=== PATIENT | female | born 1995 | race Caucasian/White ===

== ENCOUNTER 2017-07-28 18:34 | Emergency (ER) | payer OTHER ==
[~2017-07-28] VITALS: Ht 167.6 cm; Wt 97.1 kg
[~2017-07-28 18:34] MED LIST: AMOXICILLIN500 MG PO; LIDEX0.05 %/15 TOP; MEDROL4 M2 PO; PEPCID20 M1 PO
[2017-07-28 19:02] LABS: ABSOLUTE BASOPHIL COUNT 0 /CUMM (0.0-0.2); ABSOLUTE EOSINOPHIL COUNT 0.1 /CUMM (0.0-0.7); ABSOLUTE GRANULOCYTE CT 7.7 /CUMM (1.4-6.5); ABSOLUTE LYMPH COUNT 1.5 /CUMM (1.2-3.4); ABSOLUTE MONOCYTE COUNT 0.7 /CUMM (0.10-0.60); BASOPHIL % 0.5 % (0.0-2.0); EOSINOPHIL % 0.6 % (0-5); GRANULOCYTE % 76.7 % (42.2-75.2); HEMATOCRIT 35.8 % (37-47); MEAN CORPUSCULAR HGB 30.1 PG (27.0-31.0); MEAN CORPUSCULAR HGB CONC 33.6 G/DL (33.0-37.0); MEAN CORPUSCULAR VOLUME 89.6 FL (81.0-99.0); MEAN PLATELET VOLUME 9.4 FL (7.4-10.4); PLATELET COUNT 193 /CUMM (130-400); RBC DISTRIBUTION WIDTH 13.6 % (11.5-14.5); WHITE BLOOD CELL COUNT 10.1 /CUMM (4.8-10.8)
--- NOTE | 2017-07-28 20:18 | ULTRASOUND REPORT ---
EXAMINATION: ULTRASOUND PELVIC, COMPLETE CLINICAL INFORMATION: No intrauterine seen on an off-site study today. Positive quantitative test COMPARISON: None. TECHNIQUE: Transabdominal grayscale ultrasound study of pelvis. Spectral Doppler and color Doppler exam was utilized. LMP: 06/13/2017. Gestational age 6 weeks 3 days. CJ 03/20/2018. FINDINGS: UTERUS: There is a single intrauterine gestation in vertex presentation in transverse lie. There is motion. heart rate is 139 bpm. biometrics: 1. Biparietal diameter. 4.74 cm. 20 weeks 3 days. 2. OFD. 6.05 cm. 20 weeks 4 days. 3. Head circumference. 18.18 cm. 20 weeks 5 days. 4. Abdominal circumference. 15.35 cm. 20 weeks 4 days. 5. Femur length. 3.49 cm. 29 weeks 1 day. Estimated gestational age by this ultrasound exam is 20 weeks 5 days. CJ 12/10/2017. Estimated weight 373 g. +/- 54 g. ADNEXA: Ovaries not visualized. CUL-DE-SAC: No fluid. IMPRESSION: Single intrauterine gestation. Gestational age is 20 weeks 5 days. CJ 12/10/2017.
[2017-07-28 20:20] VITALS: BP 106/55
--- NOTE | 2017-07-28 20:22 | ED GENERAL ADULT ---
History of Present Illness General Chief Complaint: Female Urogenital Problems Stated Complaint: PT WAS SIB DR POSSIBLE UTOPIC Source: patient Exam Limitations: no limitations Vital Signs & Intake/Output Vital Signs & Intake/Output ED Intake and Output 07/29 0000 07/28 1200 Intake Total 0 Output Total Balance 0 Intake, Oral 0 Patient 214 lb Weight Weight Reported by Patient Measurement Method Allergies Coded Allergies: NO KNOWN ALLERGIES (01/25/17) Reconcile Medications Amoxicillin 500 MG CAPSULE 1 TAB PO TID ABRASION Famotidine (Pepcid) 20 MG TABLET 1 TAB PO BID ALLERGIC REACTION Fluocinonide (Lidex) 15 GM CREAM..G. 1 IN TOP BID POISON JUAN PABLO APPLY TO RASH TWICE A DAY Methylprednisolone. (Medrol) 4 MG TAB.DS.PK 1 DP PO AD INFLAMMATION 6 on day 1 then reduce by one tablet daily until gone Triage Note: [facility] AND WAS TOLD NOT FETUS NOTED. PT HAD A HCG QUANT DONE AND IT READ 17,591. PT WAS SENT HERE TO R/O ECTOPIC Triage Nurses Notes Reviewed? yes Onset: Abrupt Duration: week(s): Timing: single episode today Injury Environment: home Severity: mild, moderate LMP (ages 10-50): unknown : Yes Patient currently breastfeeds: No HPI: 22-year-old female currently 20 weeks presents for evaluation of possible ectopic . Patient states that she had taken a at home that was positive she went to a [facility] where she had a blood test that was positive. They attempted a bedside ultrasound and was not able to locate a IUP. She was sent in to rule out ectopic. Patient is clinically fine she has no symptoms. She has no abdominal pain no vaginal bleeding. (Leonid Giraldo) Past History Travel History Traveled to [place] past 21 day No Medical History Any Pertinent Medical History? see below for history Neurological: NONE EENT: NONE Cardiovascular: NONE Respiratory: NONE Gastrointestinal: NONE Hepatic: NONE Renal: NONE Musculoskeletal: NONE Psychiatric: NONE Endocrine: NONE Surgical History Surgical History: non-contributory Psychosocial History What is your primary language Telugu Tobacco Use: Never used ETOH Use: denies use Illicit Drug Use: denies illicit drug use Family History Hx Contributory? No (Leonid Giraldo) Review of Systems Review of Systems Constitutional: Reports: no symptoms. EENTM: Reports: no symptoms. Respiratory: Reports: no symptoms. Cardiovascular: Reports: no symptoms. GI: Reports: no symptoms. Genitourinary: Reports: no symptoms. Musculoskeletal: Reports: no symptoms. Skin: Reports: no symptoms. Neurological/Psychological: Reports: no symptoms. Hematologic/Endocrine: Reports: no symptoms. Immunologic/Allergic: Reports: no symptoms. All Other Systems: Reviewed and Negative (Leonid Giraldo) Physical Exam Physical Exam General Appearance: well developed/nourished, no apparent distress, alert, awake Head: atraumatic, normal appearance Eyes: Bilateral: normal appearance, PERRL, EOMI. Ears, Nose, Throat: hearing grossly normal Neck: normal inspection, supple, full range of motion Respiratory: normal breath sounds, chest non-tender, no respiratory distress, lungs clear Cardiovascular: regular rate/rhythm, normal peripheral pulses Peripheral Pulses: 2+ radial (R), 2+ radial (L) Gastrointestinal: normal bowel sounds, soft, non-tender, no organomegaly Back: normal inspection, normal range of motion, no vertebral tenderness Extremities: normal inspection, normal range of motion, no edema Neurologic/Psych: no motor/sensory deficits, awake, alert, oriented x 3, normal gait Skin: intact, normal color, warm/dry Lymphatic: no anterior cervical jennifer Core Measures ACS in differential dx? No CVA/TIA Diagnosis: No Sepsis Present: No Sepsis Focused Exam Completed? No (Leonid Giraldo) Progress Differential Diagnoses I considered the following diagnoses in my evaluation of the patient: [ Intrauterine , ectopic , molar ] Plan of Care: Orders Procedure Date/time Status URINALYSIS 07/28 1836 Complete HUMAN BETA HCG TITRE 07/28 1836 Complete COMPREHENSIVE METABOLIC PANEL 07/28 1836 Complete CBC WITHOUT DIFFERENTIAL 07/28 1836 Complete Laboratory Tests 07/28/170: Urinalysis MOD H, Urine Color YEL, Urine Clarity CLDY H, Urine pH 7.0, Ur Specific [place] 1.025, Urine Protein NEG, Urine Ketones NEG, Urine Nitrite NEG, Urine Bilirubin NEG, Urine Urobilinogen 0.2, Ur Leukocyte Esterase TRACE H, Ur Microscopic SEDIMENT EXAMINED, Urine RBC RARE, Urine WBC 3-5 H, Ur Epithelial Cells MOD H, Urine Bacteria FEW H, Urine Mucus FEW, Urine Hemoglobin NEG, Urine Glucose NEG 07/28/17 1849: Anion Gap 9, Estimated GFR > 60, BUN/Creatinine Ratio 13.3, Glucose 79, Calcium 9.1, Total Bilirubin 0.4, AST 11 L, ALT 13, Alkaline Phosphatase 60, Total Protein 6.7, Albumin 3.7, Globulin 3.0, Albumin/Globulin Ratio 1.2, Beta HCG, Quant 79918.0, CBC w Diff NO MAN DIFF REQ, RBC 4.00 L, MCV 89.6, MCH 30.1, MCHC 33.6, RDW 13.6, MPV 9.4, Gran % 76.7 H, Lymphocytes % 14.9 L, Monocytes % 7.3, Eosinophils % 0.6, Basophils % 0.5, Absolute Granulocytes 7.7 H, Absolute Lymphocytes 1.5, Absolute Monocytes 0.7 H, Absolute Eosinophils 0.1, Absolute Basophils 0 Patient seen and evaluated. She is here to confirm IUP. Feels fine and has no symptoms. Blood work is within normal limits. Ultrasound confirms an IUP with a approximately 20 week gestation. Patient was instructed to start vitamins follow-up with AUDIO/VIDEO ENGINEER discussed return precautions case discussed with Dr. HENDRIX and he agrees. Diagnostic Imaging: Viewed by Me: Ultrasound. Discussed w/RAD: Ultrasound. Radiology Impression: PATIENT: HERMINIA BONE PRESENT AGE: 22 PATIENT ACCOUNT NO: [id number] : 97 LOCATION: [facility] [place] ORDERING PHYSICIAN: Leonid ESPINO SERVICE DATE: 07/28/17 EXAM TYPE: US - US TRANSVAG EXAMINATION: ULTRASOUND PELVIC, COMPLETE CLINICAL INFORMATION: No intrauterine seen on an off-site study today. Positive quantitative test COMPARISON: None. TECHNIQUE: Transabdominal grayscale ultrasound study of pelvis. Spectral Doppler and color Doppler exam was utilized. LMP: 06/13/2017. Gestational age 6 weeks 3 days. CJ 03/20/2018. FINDINGS: UTERUS: There is a single intrauterine gestation in vertex presentation in transverse lie. There is motion. heart rate is 139 bpm. biometrics: 1. Biparietal diameter. 4.74 cm. 20 weeks 3 days. 2. OFD. 6.05 cm. 20 weeks 4 days. 3. Head circumference. 18.18 cm. 20 weeks 5 days. 4. Abdominal circumference. 15.35 cm. 20 weeks 4 days. 5. Femur length. 3.49 cm. 29 weeks 1 day. Estimated gestational age by this ultrasound exam is 20 weeks 5 days. CJ 12/10/2017. Estimated weight 373 g. +/- 54 g. ADNEXA: Ovaries not visualized. CUL-DE-SAC: No fluid. IMPRESSION: Single intrauterine gestation. Gestational age is 20 weeks 5 days. CJ 12/10/2017. DICTATED BY: Jemal Colvin MD DATE/TIME DICTATED:07/28/172007 FOOD AND BEVERAGE INTERN:CLEMENTE DATE/TIME TRANSCRIBED:07/28/172007 CONFIDENTIAL, DO NOT COPY WITHOUT APPROPRIATE AUTHORIZATION. <Electronically signed in Other Vendor System> SIGNED BY: Jemal Colvin MD 07/28/172017 Initial ED EKG: none (Leonid Giraldo) Departure Departure Disposition: HOME OR SELF CARE Condition: Stable Clinical Impression Primary Impression: Intrauterine Referrals: Guy HENAO,Binh Acosta (PCP/Family) Additional Instructions: Follow-up with your AUDIO/VIDEO ENGINEER doctor as soon as possible. Monitor symptoms return with any concerns. Start taking vitamins. Departure Forms: Customer Survey General Discharge Information (Leonid Giraldo) PA/SHRINKER Co-Sign Statement Statement: ED Attending supervision documentation- X I saw and evaluated the patient. I have also reviewed all the pertinent lab results and diagnostic results. I agree with the findings and the plan of care as documented in the PA's/SHRINKER's documentation. [] I have reviewed the ED Record and agree with the PA's/SHRINKER's documentation. [] Additions or exceptions (if any) to the PAs/SHRINKER's note and plan are summarized below: [] ([place] HENAO,Juancarlos) Critical Care Note Critical Care Note Critical Care Time: non-applicable (Leonid Giraldo)
== END 2017-07-28 21:25 ==
LOC: ERH 18:34
PROVIDERS: Physician Assistant Medical
DX: Z34.92 Encounter for supervision of normal pregnancy, unspecified, second trimester (principal); Z3A.20 20 weeks gestation of pregnancy
CPT/HCPCS: 76817; 81001

== ENCOUNTER 2017-12-08 11:43 | Inpatient (IN) | payer OTHER ==
[~2017-12-08] VITALS: Ht 170.2 cm; Wt 108.9 kg
[2017-12-08] MEDS ORDERED: PRENATAL ONE D1 EACH PO (12:42)
--- NOTE | 2017-12-08 12:56 | PN- OBGYN ---
Surgical Brief Attending Note Brief Attending Note: Patient is a 22 year old Para 0 at term in early labor. GBBS negative normotensive and Catagory 1 tracing To be admitted now. Discussed Nitrous oxide for labor analgesia at present and epidural if not effective for pain relief. Full H and P to follow. Discussed care with Nursing team and patient and family.
[2017-12-08 13:09] LABS: ABSOLUTE BASOPHIL COUNT 0 /CUMM (0.0-0.2); ABSOLUTE EOSINOPHIL COUNT 0 /CUMM (0.0-0.7); ABSOLUTE GRANULOCYTE CT 12.1 /CUMM (1.4-6.5); ABSOLUTE LYMPH COUNT 1.2 /CUMM (1.2-3.4); ABSOLUTE MONOCYTE COUNT 0.9 /CUMM (0.10-0.60); BASOPHIL % 0.2 % (0.0-2.0); EOSINOPHIL % 0.3 % (0-5); GRANULOCYTE % 84.9 % (42.2-75.2); MEAN CORPUSCULAR HGB 29.5 PG (27.0-31.0); MEAN CORPUSCULAR HGB CONC 33.6 G/DL (33.0-37.0); MEAN CORPUSCULAR VOLUME 87.8 FL (81.0-99.0); MEAN PLATELET VOLUME 9.3 FL (7.4-10.4); PLATELET COUNT 176 /CUMM (130-400); RBC DISTRIBUTION WIDTH 14.1 % (11.5-14.5); RED BLOOD CELL CT 4.21 /CUMM (4.20-5.40); WHITE BLOOD CELL COUNT 14.3 /CUMM (4.8-10.8)
--- NOTE | 2017-12-08 15:04 | History & Physical ---
General Information and HPI MD Statement: I have seen and personally examined HERMINIA BONE and documented this H&P. The patient is a 22 year old female at 39 weeks and 5 days gestation who presented with a chief complaint of contractions. Source of Information: patient, old records Exam Limitations: no limitations History of Present Illness: Patient is a 22 year old Para 0 at term with complaints of contractions since this am. Presented to my office at 0930 and was 4-5 cm. She was informed to come to CBC for admission. Good movement. Denies vaginal bleeding. 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 Home Who Do You Live With? parent Primary Language: Gibraltarian Smoking Status: Never Smoked ETOH Use: denies use Illicit Drug Use: denies illicit drug use Living Will? unknown Power of Compliance Professional/HCP? unknown Employment History Employment Unemployed Review of Systems Review of Systems Constitutional: Denies: no symptoms. EENTM: Denies: no symptoms. Cardiovascular: Denies: no symptoms. Respiratory: Denies: no symptoms. GI: Denies: no symptoms. Genitourinary: Denies: no symptoms. Musculoskeletal: Denies: no symptoms. Skin: Denies: no symptoms. Neurological/Psychological: Denies: no symptoms. Hematologic/Endocrine: Denies: no symptoms. Immunologic/Allergic: Denies: no symptoms. All Other Systems: Reviewed and Negative Date of LMP: 06/06/17 Post Menopausal: No Mammogram Testing Status: Test never done Pap Smear Testing Status: Test never done (she is under 21) Exam & Diagnostic Data Last 24 Hrs of Vital Signs/I&O Intake & Output 12/08 1600 12/08 0800 12/08 0000 Intake Total Output Total Balance Patient 108.862 kg Weight Obstetric Exam Wgt Gained During : 28 Pelvimetry: Gynecoid Dilation (cm): 5 Effacement (%): 100 Station: -2 Membranes: intact Fluid: Intact Fundal Height (cm): 39 Multiple Gestation? No Contractions: Q2-3 minutes #1 - FHR Baseline: 140 Category: 1 Estimated Weight: 3500 grams Presentation: Cephalic Patient for Induction? No Avina Score Avina Score Response Value Cervix Position: posterior 0 Cervix Consistency: soft 2 Cervix Effacement: >80% 3 Cervix Dilation: >5 cm 3 Cervix Station: -2 1 Total 9 Physical Exam General Appearance Alert, Oriented X3, Cooperative, Moderate Distress Skin No Rashes, No Breakdown HEENT Atraumatic, PERRLA Neck Supple Lymphatic Axillary nl Cardiovascular Regular Rate, Normal S1, Normal S2 Lungs Clear to Auscultation, Normal Air Movement Abdomen Soft Neurological Normal Gait, Normal Speech, Strength at 5/5 X4 Ext, Normal Tone, Sensation Intact, Cranial Nerves 3-12 NL, Reflexes 2+ Extremities No Edema Vascular Normal Pulses, Pulses Symmetrical Breasts Breast appear nl Reproductive (FEMALE) Normal female genitalia Pelvic (FEMALE) Appearance Normal Labs Blood Type & Rh: A positive Antibody Screen: negative Hct/Hgb & Platelets #1: 35.5/196 Hct/Hgb & Platelets #2: 37.8/204 Rubella: immune VDRL #1: negative VDRL #2: negative HbsAg: negative HIV #1: negative HIV #2 negative 1 Hr P 3 Hr PG: GTT negative Group B Strep: negative Initial Ultrasound: Dating us wnl Anatomy Ultrasound: Level 2 wnl and anterior placenta Ultrasound for EFW: 3096 grams at [id number] Genetic Testing: NIPT negative and AFP negative Last 24 Hrs of Labs/[place]: Laboratory Tests 12/08/17 1245: CBC w Diff MAN DIFF ORDERED, RBC 4.21, MCV 87.8, MCH 29.5, MCHC 33.6, RDW 14.1, MPV 9.3, Gran % 84.9 H, Lymphocytes % 8.1 L, Monocytes % 6.5, Eosinophils % 0.3, Basophils % 0.2, Absolute Granulocytes 12.1 H, Absolute Lymphocytes 1.2, Absolute Monocytes 0.9 H, Absolute Eosinophils 0, Absolute Basophils 0, Platelet Estimate VERIFIED BY SMEAR, Normocytic RBCs VERIFIED, Normochromic RBCs VERIFIED 12/08/17 1240: Urinalysis LIGHT H, Urine Color YEL, Urine Clarity HAZY H, Urine pH 6.0, Ur Specific [place] 1.025, Urine Protein TRACE H, Urine Ketones NEG, Urine Nitrite NEG, Urine Bilirubin NEG, Urine Urobilinogen 0.2, Ur Leukocyte Esterase LARGE H , Ur Microscopic SEDIMENT EXAMINED, Urine RBC RARE, Urine WBC 25-50 H, Ur Epithelial Cells MANY H, Urine Bacteria MANY H, Urine Hemoglobin LARGE H, Urine Glucose NEG Assessment/Plan Assessment/Plan: 22 year old para o with complicated by obesity who is now in early active labor. She is GBBS negative and with Catagory 1 tracing. Admit for labor Epidural requested GBBS negative so unless pyrexia noted no need for antibiotics Shoulder dystocia risks being obesity however last US from 36w6d is 3096 grams. EFW 3500 grams and negative GTT. Watch labor curve Anticipate vaginal . If csection is performed I will place IUD at time of csection for contraception. VNA services given first . As Ranked By This Provider Problem List: 1. 2. Obesity affecting in third trimester, antepartum Core Measures Venous Thromboembolism VTE Risk Factors / No Mechanical VTE Prophylaxis d/t N/A MechProphylax Ordered No VTE Pharm Prophylaxis d/t NA PharmProphylax ordered
--- NOTE | 2017-12-08 21:09 | PN- OBGYN ---
Surgical Brief Attending Note Brief Attending Note: Patient seen and examined /-2 Catagory [address] Protracted labor course Intact forewaters. I didnt AROM as not well engaged. More likely slower course from epidural. Discussed with patient that head hasnt descended yet but was OP on previous US. I will reassess in 2 hours.
--- NOTE | 2017-12-08 22:48 | PN- OBGYN ---
Surgical Brief Attending Note Brief Attending Note: Informed of T100.2 Catagory 1 tracing but baseline did increase to 160's 8-9/100/-2 AROM light meconium IUPC placed to assess contraction pattern. Pyrexia noted. If additional temp over 100.4 than antibiotics needed If pattern is hypotonic on contraction pattern than oxytocin Reassess in two hours. Patient and mother informed of treatment plan
--- NOTE | 2017-12-09 01:17 | PN- OBGYN ---
Surgical Brief Attending Note Brief Attending Note: C/o pressure 8/100/-2. Catagory [address] MVU of 180-200. Now 4 hours of adequate contractions and no cervical change. I discussed with patient and family that her labor curve has been protracted today. In my opinion her pelvis is adequate and the contractions have been as well. Giving her additional time would only increase her risks of chorioamnionitis and uterine atony. I contacted Pediatrics and they are coming in. Anesthesia team is aware as well. Consent for procedure obtained. Risks of pain, bleeding, infection, damage to local organs (bowel, bladder, nerve), vte, future risk of placenta previa and ileus reviewed. Ample time given for questions. Hct 37 and Rh positive.
--- NOTE | 2017-12-09 03:21 | Operative Report ---
Operative/Inv Procedure Report Surgery Date: 12/09/17 Name of Procedure: Low transverse Csection Pre-Operative Diagnosis: Arrest of dilation Post-Operative Diagnosis: same Estimated Blood Loss: 600 Surgeon/Director Of Marketing Analytics: Asad HENAO,Edward Quinteros MD, X Anesthesia: Epidural Monitors: Per anesthesiology IV Fluids: 1500 Urine Output: 300 Drains: NA Specimens: Placenta Complications: None Condition: Stable to RR and stable to RR Operative Indication: 22 year old Para 0 at term with arrest of dilation at 8 cm despite 4 hours of adequate contractions and IUPC monitoring. Preop diagnosis was that of malrotation. Consent obtained with risks and benefits explained. Ample time given for questions and partner present along with her mother. Operative/Procedure Note Note: Patient taken to OR and prepped in usual sterile fashion Time out done prior to procedure. As she was in labor and with PROM than a vaginal prep was done. After abdomen prepped a phannensteil incision was made with a scalpel and carried down to underlying layer of fascia. The fascia was opened and extended using bovie cautery. The fascia was bluntly and sharply dissected from the underlying muscle. The muscle was entered bluntly and then the peritoneum identified and entered sharply with metzenbaum scissors. The peritoneal cavity was then streched and bladder blade introduced. The vesicouterine peritoneum was sharply dissected from the uterus and displaced caudally. The bladder blade was then reintroduced. A hysterotomy incision was made with a scalpel and extended in manual fashion. The head was lifted to the level of the incision and nuchal x 1 reduced. given to peds in good condition. The placenta was removed using the crede maneuver. The uterus was removed from the abdomen and cleared of clots and debris. Oxytocin was administered per protocol from Anesthesiology. First layer closure done with O vicryl and a second imbricating layer with O vicryl as well. Uterus replaced into the abdomen and the abdomen was irrigated. Peritoneum closed with 3-0 vicryl and the rectus reapproximated with 3-0 vicryl. Fascia closed then with 0 vicryl and the subcutaneous tissue reapproximated with 3-0 plain. The skin was closed with 4-0 monocryl on baldomero needle. Instrument and lap count correct x 2. Patient tolerated procedure well and taken to RR in stable condition. Findings: No adhesions noted liveborn male LOT rotation noted Nuchal cord x 1 reduced Apgars 9 and 9 Normal uterus tubes and ovaries Meconium stained fluid. Discharge Disposition: RR Additional Comments: Peds present and apgars 9 and 9
[2017-12-09 04:48] VITALS: BP 129/65
--- NOTE | 2017-12-09 13:59 | PN- OBGYN ---
Surgical Brief Attending Note Brief Attending Note: Seen and evaluated POD#0 Afebrile and vitals stable Denies nausea Tolerating diet Breast feeding Pain controlled on current medication VTE prophylaxis with alps Lovenox to start tomorrow am
[2017-12-09 21:37] LABS: ABSOLUTE BASOPHIL COUNT 0 /CUMM (0.0-0.2); ABSOLUTE EOSINOPHIL COUNT 0 /CUMM (0.0-0.7); ABSOLUTE GRANULOCYTE CT 15.5 /CUMM (1.4-6.5); ABSOLUTE LYMPH COUNT 0.8 /CUMM (1.2-3.4); ABSOLUTE MONOCYTE COUNT 1.1 /CUMM (0.10-0.60); BASOPHIL % 0 % (0.0-2.0); EOSINOPHIL % 0.1 % (0-5); MEAN CORPUSCULAR HGB 29.8 PG (27.0-31.0); MEAN CORPUSCULAR HGB CONC 33.1 G/DL (33.0-37.0); MEAN CORPUSCULAR VOLUME 89.9 FL (81.0-99.0); MEAN PLATELET VOLUME 8.7 FL (7.4-10.4); PLATELET COUNT 134 /CUMM (130-400); RBC DISTRIBUTION WIDTH 14.2 % (11.5-14.5); RED BLOOD CELL CT 3.23 /CUMM (4.20-5.40); WHITE BLOOD CELL COUNT 17.3 /CUMM (4.8-10.8)
[2017-12-09 21:48] LABS: HEMATOCRIT 29.1 % (37-47)
[2017-12-09 22:11] LABS: GRANULOCYTE % 89.2 % (42.2-75.2)
[2017-12-10 09:54] LABS: ABSOLUTE BASOPHIL COUNT 0 /CUMM (0.0-0.2); ABSOLUTE EOSINOPHIL COUNT 0 /CUMM (0.0-0.7); ABSOLUTE GRANULOCYTE CT 15.4 /CUMM (1.4-6.5); ABSOLUTE LYMPH COUNT 1.1 /CUMM (1.2-3.4); ABSOLUTE MONOCYTE COUNT 1.3 /CUMM (0.10-0.60); BASOPHIL % 0 % (0.0-2.0); EOSINOPHIL % 0.2 % (0-5); GRANULOCYTE % 86.4 % (42.2-75.2); HEMATOCRIT 27.8 % (37-47); MEAN CORPUSCULAR HGB 29.6 PG (27.0-31.0); MEAN CORPUSCULAR HGB CONC 33.4 G/DL (33.0-37.0); MEAN CORPUSCULAR VOLUME 88.7 FL (81.0-99.0); MEAN PLATELET VOLUME 9.4 FL (7.4-10.4); PLATELET COUNT 135 /CUMM (130-400); RBC DISTRIBUTION WIDTH 14.4 % (11.5-14.5); RED BLOOD CELL CT 3.13 /CUMM (4.20-5.40); WHITE BLOOD CELL COUNT 17.8 /CUMM (4.8-10.8)
[2017-12-10] MEDS ORDERED: IBUPROFEN600 M1 PO (10:39)
--- NOTE | 2017-12-10 10:50 | PN- Post Delivery/GYN ---
Subjective Subjective: Denies nausea Passed flatus and bowel movement too Review of Systems Constitutional: Denies: no symptoms. EENTM: Denies: no symptoms. Cardiovascular: Denies: no symptoms. Respiratory: Denies: no symptoms. Gastrointestinal: Denies: no symptoms. Genitourinary: Denies: no symptoms. Musculoskeletal: Denies: no symptoms. Skin: Denies: no symptoms. Neurological/Psychological: Denies: no symptoms. Hematologic/Endocrine: Denies: no symptoms. Immunologic/Allergic: Denies: no symptoms. All Other Systems: Reviewed and Negative Objective Last 24 Hrs of Vital Signs/I&O Vital Signs Date Time Temp Pulse Resp B/P B/P Pulse O2 O2 Flow FiO2 Mean Ox Delivery Rate 12/10 0345 96.9 12/10 011 99.9 12/09 1929 101.0 Physical Exam: Afebrile at present Vitals per paper record Physical Exam General Appearance Alert, Oriented X3, Cooperative, No Acute Distress Skin No Rashes HEENT Atraumatic Cardiovascular Regular Rate, Normal S1, Normal S2 Lungs Clear to Auscultation, Normal Air Movement Abdomen Normal Bowel Sounds, Wound intact Neurological Normal Gait, Normal Speech, Strength at 5/5 X4 Ext, Normal Tone, Sensation Intact Extremities No Edema Vascular Pulses Symmetrical Breasts Breast appear nl Current Medications: Current Medications Sig/Ni Start time Last Medication Dose Route Stop Time Status Admin Acetaminophen 650 MG Q4P PRN 12/10 0115 AC 12/10 PO 0758 Acetaminophen 0 .STK-MED ONE 12/10 0112 DC PO Acetaminophen 0 .STK-MED ONE 12/09 1938 DC IV Acetaminophen 0 .STK-MED ONE 12/09 1112 DC IV Acetaminophen 1,000 MG Q6H 12/09 0500 DC 12/09 N/A 1 UNIT IV 12/09 1714 1930 Ascorbic Acid 500 MG BID 12/09 0900 AC 12/09 PO 2355 Diphenhydramine HCl 25 MG Q6P PRN 12/09 0430 AC IV Ibuprofen 600 MG Q6P PRN 12/09 0315 AC 12/10 PO 0758 Ketorolac 30 MG Q6P PRN 12/09 0430 DC 12/10 Tromethamine IV 12/10 0429 0234 Magnesium Hydroxide 30 ML DAILY NEEDED PRN 12/09 0315 AC PO Metoclopramide HCl 10 MG Q6P PRN 12/09 0430 AC IV Naloxone HCl 0.2 MG DAILY PRN 12/09 0430 AC IV Oxycodone HCl 5 MG Q6P PRN 12/09 1530 AC PO Oxytocin 20 UNITS Q8H 12/09 0315 DC 12/09 Lactated Ringer's 1,000 ML IV 12/09 1114 0315 Last 24 Hrs of Labs/[place]: Laboratory Tests 12/10/17 0700: CBC w Diff MAN DIFF ORDERED, RBC 3.13 L, MCV 88.7, MCH 29.6, MCHC 33.4, RDW 14.4, MPV 9.4, Gran % 86.4 H, Lymphocytes % 6.2 L, Monocytes % 7.2, Eosinophils % 0.2, Basophils % 0, Absolute Granulocytes 15.4 H, Absolute Lymphocytes 1.1 L, Absolute Monocytes 1.3 H, Absolute Eosinophils 0, Absolute Basophils 0, Platelet Estimate VERIFIED BY SMEAR, Normocytic RBCs VERIFIED, Normochromic RBCs VERIFIED 12/09/170: CBC w Diff NO MAN DIFF REQ, RBC 3.23 L, MCV 89.9, MCH 29.8, MCHC 33.1, RDW 14.2 , MPV 8.7, Gran % 89.2 H, Lymphocytes % 4.5 L, Monocytes % 6.2, Eosinophils % 0.1, Basophils % 0, Absolute Granulocytes 15.5 H, Absolute Lymphocytes 0.8 L, Absolute Monocytes 1.1 H, Absolute Eosinophils 0, Absolute Basophils 0 Assessment/Plan Assessment/Plan POD#1 s/p low transverse Csection secondary to arrest of labor at 8 cm Of note patient with one temperature spike and acute hemorrhagic anemia but currently stable and no orthostatic findings. Heme. Hct stable at 27.8 and platelets stable. More likely to have had Hct drop from combination of dilution and csection and possible uterine hematoma formation. This as the temperature was noted. Vitamin C and iron supplementation to be given. ID. Noted T max of 101. Urine culture negative and no physical findings of metritis. If additional temperature over 100.4 than to start on empiric antibiotics. VTE prophylaxis with Alps and ambulation. Breast feeding education and support provided. Tdap was given and to get influenza vaccine at follow up. Planned dc for 12/12/17 however may go home 12/11/17 if stable. Problem List: 1. delivery delivered 2. Obesity affecting in third trimester, antepartum Attending MD Review Statement Attending Statement Attending MD Statement: examined this patient, discussed with family, discussed with nursing Attending Assessment/Plan: As outlined
--- NOTE | 2017-12-11 09:41 | PN- OBGYN ---
Surgical Brief Attending Note Brief Attending Note: Seen and examined Appreciate follow up from Dr Jamil regarding Temp spike. Patient states feeling well Denies coughing Denies back pain Denies breast pain States flatus is passing T max 101.2 Afebrile at present. Lungs clear Abdomen soft and incisional tenderness Wound intact No cvat 1+ pedal edema Meds: Iron, Vitamin C, Unasyn WBC 17.3 Platelets 135 and Hct 27.8 on 12/10/17 Pod#2 s/p low transverse csection for arrest of labor. Postoperative course complicated by acute hemorrhagic anemia and now fever. ID. Most likely endometritis vs that of infected hematoma given the acute hct drop. Afebrile at present. Follow fever curve. On Unasyn day #1. As long as no fever in 24 hours than plan for dc. No other focal findings clinically and she denied engorgement. Start on probiotics to prevent antibiotic associated diarrhea. Heme. Follow up cbc today for assessment of wbc, hct and platelets. VTE prophylaxis. She is ambulating well. On alps for when she is sleeping and in bed. Diet. Tolerating regular diet Pain. She is using tylenol and motrin as needed with oxycodone for breakthrough. She received the Tdap and will get the flu shot at follow up. Plan once afebrile for dc and follow up in one week with Dr Kamara Breast feeding counseling and support given. I will review care with Dr Jamil as she is covering this weekend. Patient understands treatment plan.
[2017-12-11 10:05] LABS: ABSOLUTE BASOPHIL COUNT 0 /CUMM (0.0-0.2); ABSOLUTE EOSINOPHIL COUNT 0.1 /CUMM (0.0-0.7); ABSOLUTE GRANULOCYTE CT 12.2 /CUMM (1.4-6.5); ABSOLUTE LYMPH COUNT 1.2 /CUMM (1.2-3.4); BASOPHIL % 0 % (0.0-2.0); EOSINOPHIL % 0.9 % (0-5); GRANULOCYTE % 84.3 % (42.2-75.2); HEMATOCRIT 28.6 % (37-47); MEAN CORPUSCULAR HGB 29.6 PG (27.0-31.0); MEAN CORPUSCULAR VOLUME 89.5 FL (81.0-99.0); MEAN PLATELET VOLUME 8.8 FL (7.4-10.4); PLATELET COUNT 155 /CUMM (130-400); RBC DISTRIBUTION WIDTH 14.3 % (11.5-14.5); WHITE BLOOD CELL COUNT 14.4 /CUMM (4.8-10.8)
--- NOTE | 2017-12-11 17:09 | PN- Post Delivery/GYN ---
Subjective Subjective: No complaints Objective Last 24 Hrs of Vital Signs/I&O Temperature 102 Physical Exam: Resident white female embedded HEENT anicteric Abdomen soft nontender Fundus firm nontender 2 cm below umbilicus From the Pfannenstiel skin incision 22 cm below the umbilicus the patient has a well defined pink area consistent with cellulitis the incision is clean dry and intact Extremities +3 edema negative Homans Assessment/Plan Assessment/Plan Assessment status post section with a temperature skin infection consistent with cellulitis plan continue Unasyn patient have offered left lower temperature is temperature persists patient will have blood cultures and cooling blanket otherwise expectant management
[2017-12-12] MEDS ORDERED: FERROUS SULFAT325 M2 PO (12:03)
[2017-12-12] MEDS ORDERED: OXYCODONE HCL5 M1 PO (12:03)
--- NOTE | 2017-12-14 08:53 | Surgical Discharge Summary ---
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 Home Who Do You Live With? Family Services at Home: None What is Your Primary Language? Romanian Tobacco History: NA ETOH Use: denies use Illicit Drug Use History: na Other Addictive Behavior: na Review of Systems: Denies nausea Denies vomiting Positive flatus Hospital Course Course Attending Physician: Edward Kamara MD Primary Care Physician: Binh Tovar MD Hospital Course: Admitted for labor. She progressed to 8 cm. No cervical change was noted and she had a low transverse csection performed on the . Began to have fever on the and was started on antibiotics. Discharged afebrile on the by Dr Jamil. Cultures negative to date and wbc was trending downward with stable hematocrit. Complications: fever Allergies: Coded Allergies: NO KNOWN ALLERGIES (NONE 12/14/17) Significant Procedures: Low transverse csection Pertinent Lab Results: WBC 14 Hematocrit 28 Urine and blood cultures negative Disposition Summary Disposition Principal Diagnosis: Arrest of labor Additional Diagnosis: fever Discharge Disposition: home or self care Discharge Instructions General Discharge Information Code Status: Full Code Patient's Diet: Regular Patient's Activity: As tolerated and no heavy lifting Follow-Up Instructions/Appts: CBC for week of 12/14/17 and 12/18/[address] Kamara for wound care assessment. Medications at Discharge Discharge Medications: Continue taking these medications: Vit No.129/Iron/FA ( One Daily Tablet) 27 MG IRON-800 MCG TABLET 1 Tablet ORAL DAILY Start taking the following new medications: Ibuprofen (Ibuprofen) 600 MG TABLET 600 Milligram ORAL EVERY SIX HOURS NEEDED as needed for UTERINE CRAMPING Qty = 30 No Refills Comments: Last Taken:12/12/17 Time:0759 Ferrous Sulfate (Ferrous Sulfate) 325 MG (65 MG IRON) TABLET.DR 325 Milligram ORAL AT BEDTIME Qty = 90 No Refills Oxycodone HCl (Oxycodone HCl) 5 MG TABLET 5 Milligram ORAL EVERY SIX HOURS NEEDED as needed for PAIN SCALE 7-10 ( SEVERE) Qty = 30 No Refills Copies To: Asad HENAO,Edward Attending Review Statement Attending Statement Attending MD Statement: examined this patient Attending Assessment/Plan: As outlined
== END 2017-12-12 15:00 | DRG 765 ==
LOC: CBCO 11:43 → GNO 12:21
PROVIDERS: Obstetrics & Gynecology; Specialist
PROC: 10D00Z1 Extraction of Products of Conception, Low, Open Approach (ICD-10-PCS; principal; 2017-12-09)
DX: O62.1 Secondary uterine inertia (principal); D62 Acute posthemorrhagic anemia; O86.4 Pyrexia of unknown origin following delivery; Z3A.39 39 weeks gestation of pregnancy; Z37.0 Single live birth; O69.81X0 Labor and delivery complicated by cord around neck, without compression, not applicable or unspecified; O77.0 Labor and delivery complicated by meconium in amniotic fluid; O99.214 Obesity complicating childbirth; O90.81 Anemia of the puerperium
CPT/HCPCS: GNOP; GNOS; 36415; 81001; 87040; 87086; J0131; J1650; J1885; J2405; J7120

== ENCOUNTER 2017-12-14 07:52 | Inpatient (IN) | payer OTHER ==
[~2017-12-14] VITALS: Ht 170.2 cm; Wt 106.8 kg
[~2017-12-14 07:52] MED LIST changes: +FERROUS SULFAT325 M2 PO; +IBUPROFEN600 M1 PO; +OXYCODONE HCL5 M1 PO; +PRENATAL ONE D1 EACH PO
[2017-12-14 09:13] LABS: ABSOLUTE BASOPHIL COUNT 0 /CUMM (0.0-0.2); ABSOLUTE EOSINOPHIL COUNT 0.1 /CUMM (0.0-0.7); BASOPHIL % 0 % (0.0-2.0); EOSINOPHIL % 0.9 % (0-5); WHITE BLOOD CELL COUNT 14.3 /CUMM (4.8-10.8)
[2017-12-14 09:18] LABS: ABSOLUTE GRANULOCYTE CT 12.6 /CUMM (1.4-6.5); ABSOLUTE LYMPH COUNT 0.7 /CUMM (1.2-3.4); HEMATOCRIT 27.5 % (37-47); MEAN CORPUSCULAR HGB CONC 33.8 G/DL (33.0-37.0); MEAN CORPUSCULAR VOLUME 88.8 FL (81.0-99.0); MEAN PLATELET VOLUME 8.2 FL (7.4-10.4); RBC DISTRIBUTION WIDTH 13.5 % (11.5-14.5)
[2017-12-14 09:20] LABS: PLATELET COUNT 242 /CUMM (130-400)
[2017-12-14 09:35] LABS: GRANULOCYTE % 87.7 % (42.2-75.2)
--- NOTE | 2017-12-14 09:36 | ED GENERAL ADULT ---
History of Present Illness General Chief Complaint: General Adult Stated Complaint: FEVER S/P POSTPARDUM Source: patient Exam Limitations: no limitations Vital Signs & Intake/Output Vital Signs & Intake/Output Vital Signs Date Time Temp Pulse Resp B/P B/P Pulse O2 O2 Flow FiO2 Mean Ox Delivery Rate 12/14 1119 98.3 83 16 146/80 94 Room Air 12/14 0922 99.2 89 16 128/64 94 Room Air 12/14 0759 101.9 130 18 125/77 92 Room Air Allergies Coded Allergies: NO KNOWN ALLERGIES (NONE 12/14/17) Reconcile Medications Cephalexin 500 MG CAPSULE 1 CAP PO Q6 ANTIBIOTIC, INFECTION (Reported) Ferrous Sulfate 325 MG (65 MG IRON) TABLET.DR 325 MG PO AT BEDTIME ANEMIA Ibuprofen 600 MG TABLET 600 MG PO Q6P PRN UTERINE CRAMPING Oxycodone HCl 5 MG TABLET 5 MG PO Q6P PRN PAIN SCALE 7-10 (SEVERE) Vit No.129/Iron/FA ( One Daily Tablet) 27 MG IRON-800 MCG TABLET 1 TAB PO DAILY (Reported) Triage Note: PT HAD BABY ON THE , STARTED WITH VAGINAL DELIVERY AND THEN HAD TO HAVE A . FEELS LIKE SHE HAS STUFF IN HER LUNGS. TEMP 102.4 AT HOME - HAD TYLENOL 20 MINS AGO AND TEMP NOW 101.9 IN TRIAGE. DENIES ANY EPPS OTHER THAN WHEN COUGHING. COUGH PRODUCTIVE OF WHITE MUCUS. HR 130, RA SAT 91-92%. NOTED DIAPHORESIS ON FACE. Triage Nurses Notes Reviewed? yes Onset: Abrupt Duration: day(s): (3), constant, continues in ED, getting worse Timing: single episode today Injury Environment: HOSPITAL Severity: mild, moderate Severity Numbers: 7 No Modifying Factors: none Associated Symptoms: cough LMP (ages 10-50): S/P 4 DAYS AGO : No Patient currently breastfeeds: No HPI: 22-year-old female with no past medical history 4 days status post presents for evaluation of fever cough and shortness of breath. Patient reports she had a on 4 days ago. She did develop a postop fever and was started on Unasyn and then discharged on Keflex for possible surgical infection. Patient reports since her discharge she has developed worsening cough feels like there is fluid in her chest and has shortness of breath. She states the shortness breath is worse when she lays back. She also has lower EXTREMITY edema. No hemoptysis. She denies any chest pain back pain abdominal pain OR INCREASING vaginal discharge or bleeding. Dr. Kamara is her OB. (Leonid Giraldo) Past History Travel History Traveled to [place] past 21 day No Medical History Any Pertinent Medical History? 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 No (Leonid Giraldo) Review of Systems Review of Systems Constitutional: Reports: fever. EENTM: Reports: no symptoms. Respiratory: Reports: see HPI, cough, orthopnea, short of breath. Cardiovascular: Reports: no symptoms. GI: Reports: no symptoms. Genitourinary: Reports: no symptoms. Musculoskeletal: Reports: no symptoms. Skin: Reports: no symptoms. Neurological/Psychological: Reports: no symptoms. Hematologic/Endocrine: Reports: no symptoms. Immunologic/Allergic: Reports: no symptoms. All Other Systems: Reviewed and Negative (Leonid Giraldo) Physical Exam Physical Exam General Appearance: well developed/nourished, no apparent distress, alert, awake , obese Head: atraumatic, normal appearance Eyes: Bilateral: normal appearance, PERRL, EOMI. Ears, Nose, Throat: normal pharynx, normal ENT inspection, hearing grossly normal Neck: normal inspection, supple, full range of motion Respiratory: chest non-tender, no respiratory distress, crackles Cardiovascular: regular rate/rhythm, normal peripheral pulses Peripheral Pulses: 2+ radial (R), 2+ radial (L) Gastrointestinal: soft, non-tender, SCAR APPEARS WELL APPROXIMATED WITHOUT ERYTHEMA OR DISCHARGE NO FOCAL FLUCTUANT AREAS. uTERUS FUNDUS IS ENLARGEDAS EXPECTED FOR BEING POST BUT NONTENDER. Back: normal inspection, normal range of motion, no vertebral tenderness Extremities: normal range of motion, THERE IS NONPITTING BILATERAL LOWER EXTREMITY EDEMA Neurologic/Psych: no motor/sensory deficits, awake, alert, oriented x 3, normal gait, normal mood/affect Skin: intact, normal color, warm/dry Core Measures ACS in differential dx? No CVA/TIA Diagnosis: No Sepsis Present: No Sepsis Focused Exam Completed? No (Art ESPINO,Leonid) Progress Differential Diagnoses I considered the following diagnoses in my evaluation of the patient: [PE, pneumonia, postsurgical infection, abscess, endometritis, retained products of conception, acute bronchitis, CHF, cardiomyopathy, help syndrome,] Plan of Care: Orders Procedure Date/time Status Regular Diet 12/14 D Active CULTURE,URINE 12/14 1319 Active LOWER RESPIRATORY CULTURE 12/14 1319 Active Patient Data 12/14 1242 Active Misc Message 12/14 1210 Active ED Holding Orders 12/14 1210 Active Admit to inpatient 12/14 1210 Active Vital Signs 12/14 1210 Active Code Status 12/14 1210 Active Add-on Test (ER Only) 12/14 1120 Active EKG 12/14 1120 Active Intake & Output 12/14 0903 Active Add-on Test (ER Only) 12/14 0830 Active B-TYPE NATRIURETIC PEP (BNP) 12/14 0819 Complete BLOOD CULTURE 12/14 0804 Active URINALYSIS 12/14 0804 Complete LACTIC ACID 12/14 0804 Complete D-DIMER 12/14 0804 Complete COMPREHENSIVE METABOLIC PANEL 12/14 0804 Complete CBC WITHOUT DIFFERENTIAL 12/14 0804 Complete Laboratory Tests 12/14/17 1109: Urine Color YEL, Urine Clarity CLEAR, Urine pH 6.0, Ur Specific Friendship <= 1.005 , Urine Protein NEG, Urine Ketones TRACE H, Urine Nitrite NEG, Urine Bilirubin NEG, Urine Urobilinogen 0.2, Ur Leukocyte Esterase LARGE H, Ur Microscopic SEDIMENT EXAMINED, Urine RBC 5-10 H, Urine WBC 15-25 H, Ur Epithelial Cells FEW, Urine Bacteria FEW H, Urine Hemoglobin LARGE H, Urine Glucose NEG 12/14/17 1104: Lactic Acid Cancelled 12/14/17 0819: Anion Gap 12, Estimated GFR > 60, BUN/Creatinine Ratio 13.3, Glucose 80, Lactic Acid 0.9, Calcium 8.3 L, Total Bilirubin 0.5, AST 24, ALT 33, Alkaline Phosphatase 250 H, Zin-G-Iowxpcvctbj Pept 868 H, Total Protein 5.1 L, Albumin 2.6 L, Globulin 2.5, Albumin/Globulin Ratio 1.0 L, D-Dimer High Sensitivty 4098 H, CBC w Diff NO MAN DIFF REQ, RBC 3.10 L, MCV 88.8, MCH 30.0, MCHC 33.8, RDW 13.5, MPV 8.2, Gran % 87.7 H, Lymphocytes % 4.8 L, Monocytes % 6.6, Eosinophils % 0.9, Basophils % 0, Absolute Granulocytes 12.6 H, Absolute Lymphocytes 0.7 L, Absolute Monocytes 1.0 H, Absolute Eosinophils 0.1, Absolute Basophils 0 Microbiology 12/14 1318 URINE ROUT: Urine Culture - COLB 12/14 1318 LOWER RESP: Respiratory Culture - COLB 12/14 1318 LOWER RESP: Gram Stain - COLB 12/14 837 BLOOD: Blood Culture - RECD 12/14 818 BLOOD: Blood Culture - RECD Patient is here for evaluation of fever cough and shortness of breath 4 days status post . Initial evaluation she is tachycardic to 1:30 with an oxygen saturation 92% on room air. She does have crackles bilaterally and leg edema. She has a temp of 101.9. Labs cultures ordered. Patient will get a CTA and a CT scan of her abdomen to rule out PE. The patient's CURER ACID DRUM Dr. Kamara is aware of situation he is at the bedside to evaluate the patient he does not feel discharge since help syndrome or preeclampsia. Labs show a white count of 14. Potassium is 3.2. D-dimer is now feeling elevated waiting on CTA. CTA shows significant pulmonary edema and anasarca. No PE. She also has bilateral lower lobe pneumonia. Patient was started on Lasix. A call was placed to Dr. Laureano from cardiology waiting on recommendations she'll need an echo. Patient was started on vancomycin and Fortaz due to recent hospitalization, recent surgery recent IV antibiotics. EKG does not show any significant acute findings. BNP is elevated to 800. Patient will require admission to telemetry for serial labs, echocardiogram, serial EKGs, IV diuresis , IV antibiotics, follow-up cultures, cardiology consult, [employer]ER [employer]UM consult. Diagnostic Imaging: Viewed by Me: CT Scan. Discussed w/RAD: CT Scan. Radiology Impression: PATIENT: HERMINIA BONE PRESENT AGE: 22 PATIENT ACCOUNT NO: [id number] : 97 LOCATION: [facility] ORDERING PHYSICIAN: Leonid ESPINO SERVICE DATE: 12/14/17 EXAM TYPE: CAT - CT ABD & PELVIS W IV CONTRAST; CTA CHEST-PULMONARY EMBOLISM EXAMINATION: CT ANGIOGRAM OF THE CHEST WITH CONTRAST (CT PULMONARY ANGIOGRAM FOR PE) CLINICAL INFORMATION: Cough, shortness of breath and fever for 4 days after section. Evaluate for pulmonary embolism and pneumonia. COMPARISON: No pertinent prior studies are available for comparison. TECHNIQUE: Prior to contrast administration, noncontrast localization images were obtained. Subsequently, multidetector volumetric imaging was performed from the thoracic inlet to below the diaphragms following the administration of 95 mL Optiray 320 intravenous contrast. No contrast reaction reported. Sagittal, coronal, and MIP oblique sagittal reformatted images were obtained on the CT workstation, uploaded to PACS, and reviewed. DLP: Total exam dose-length product 1316 mGy-cm (for CT exams of the chest, abdomen and pelvis) FINDINGS: QUALITY OF STUDY/CONTRAST BOLUS: Satisfactory. PULMONARY ARTERIES: The pulmonary arteries are normal in size. No embolic filling defects are identified within the main, lobar or segmental vessels. Note that streak artifact produced by dense contrast within the superior vena cava partially interferes with evaluation of an adjacent arterial branch in the medial right upper lobe. THORACIC AORTA: Normal. LUNGS AND PLEURA: Trachea is normal in caliber. The airways are patent. Interlobular septal thickening in both lungs, consistent with interstitial edema. Small bilateral pleural effusions. There is airspace opacity/consolidation of the medial right lower lobe, suspicious for pneumonia. Also, consolidation and/or atelectasis is present in the medial left lower lobe. CARDIOVASCULAR: The heart size is normal. No inward bowing of the interventricular septum. No pericardial effusion. MEDIASTINUM: The esophagus has normal wall thickness. The visualized portion of the thyroid gland is unremarkable. No mediastinal mass. LYMPHATICS: No pathologic sized axillary, hilar or mediastinal lymph nodes. UPPER ABDOMEN: No reflux of contrast into the inferior vena cava. OSSEOUS STRUCTURES: Bones of the thorax are intact. 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 EXAMINATION: CT ABDOMEN PELVIS WITH IV CONTRAST CLINICAL INFORMATION: Abdominal pain and fever for days after section. Evaluate for abscess/endometritis. COMPARISON: None. TECHNIQUE: A volumetric helical CT acquisition of the abdomen and pelvis was obtained and axial images are presented at 0.625 mm and 5 mm slice thickness. Coronal and sagittal reformatted images were generated at the technologist workstation. The images were acquired after the intravenous contrast administration for the chest. FINDINGS: LIVER, GALLBLADDER, AND BILIARY TREE: Hepatomegaly with right hepatic lobe measuring approximately 23 cm in length. No focal hepatic lesion. The gallbladder is normal. No evidence of radiopaque gallstones, wall thickening, or pericholecystic inflammatory changes. No intrahepatic or extrahepatic bile duct dilatation. PANCREAS: Unremarkable. SPLEEN: Prominent spleen measures up to 15.3 cm AP and 15.1 cm craniocaudal. No focal splenic lesion. ADRENAL GLANDS: Unremarkable. KIDNEYS AND URETERS: The kidneys have normal size, shape, and attenuation. No hydroureteronephrosis, urolithiasis or perinephric stranding. BLADDER: Unremarkable. BOWEL AND PERITONEUM: Stomach is unremarkable. Loops of bowel are normal in caliber. Within the lower abdomen and pelvis, the bowel is compressed by the uterus. Small amount of abdominal free fluid, and mild haziness of mesenteric fat, in the lower abdomen and pelvis. This partially interferes with evaluation of bowel. The appendix is not definitively seen. Given the difficulty in identifying the appendix, clinical correlation/follow-up may be needed if patient has any significant periumbilical or right lower quadrant pain. No abdominal abscess. ABDOMINAL WALL: Diffuse edema in subcutaneous tissues of the abdominal wall/anasarca. LYMPH NODES: No pathologic sized lymph nodes in the abdomen or pelvis. No inguinal lymphadenopathy. VASCULAR: Abdominal aorta is normal in caliber. Inferior vena cava is patent. PELVIC: Patient is status post section. The prominent uterus measures approximately 19 cm long, 8.7 cm AP and 12 cm transverse. Trace amount of fluid in the endometrial cavity, an expected finding in a patient. MUSCULOSKELETAL: Unremarkable. IMPRESSION: - No evidence of pulmonary embolism. - Anasarca with interstitial pulmonary edema and small pleural effusions. - Consolidation, suspicious for pneumonia, in each lower lobe. - Hepatosplenomegaly without focal hepatic or splenic lesions. - Large uterus. - Trace amount of free fluid/ascites in the abdomen and pelvis and mesenteric edema of the lower abdomen in this patient. No abscess. - The appendix is not definitively seen. Clinical follow-up recommended if patient has any periumbilical or right lower quadrant pain. DICTATED BY: Adarsh Vera MD DATE/TIME DICTATED:12/14/171101 SERVICES TECH:CLEMENTE DATE/TIME TRANSCRIBED:12/14/171101 CONFIDENTIAL, DO NOT COPY WITHOUT APPROPRIATE AUTHORIZATION. Initial ED EKG: normal sinus rhythm, BORDERLINE ANTERIOR LATERAL t-WAVE ABNORMALITIES (Leonid Giraldo) Departure Departure Disposition: STILL A PATIENT Condition: Stable Clinical Impression Primary Impression: Pneumonia Qualifiers: Pneumonia type: due to unspecified organism Laterality: bilateral Lung location: lower lobe of lung Qualified Code: J18.1 - Lobar pneumonia, unspecified organism Secondary Impressions: Pulmonary edema Qualifiers: Chronicity: acute Qualified Code: J81.0 - Acute pulmonary edema Referrals: Guy HENAO,Binh Acosta (PCP/Family) Departure Forms: Customer Survey General Discharge Information Admission Note Spoke With: Luda HENAO,Ivory Scott Documentation of Exam: Documentation of any treatments & extenuating circumstances including Concerns Regarding Discharge (functional status, medication knowledge or non-compliance, living conditions, etc.) that warrant an admission rather than observation: [IV Lasix IV antibiotics echocardiogram cardiology serial EKGs and serial chest x- rays telemetry medication adjustment serial labs] (Leonid Giraldo) PA/FOOD AND DRUG RESEARCH SCIENTIST Co-Sign Statement Statement: ED Attending supervision documentation- [x] I saw and evaluated the patient. I have also reviewed all the pertinent lab results and diagnostic results. I agree with the findings and the plan of care as documented in the PA's/FOOD AND DRUG RESEARCH SCIENTIST's documentation. [] I have reviewed the ED Record and agree with the PA's/FOOD AND DRUG RESEARCH SCIENTIST's documentation. [] Additions or exceptions (if any) to the PAs/FOOD AND DRUG RESEARCH SCIENTIST's note and plan are summarized below: [] (Deborah HENAO,John Stewart) Critical Care Note Critical Care Note Critical Care Time: non-applicable (Leonid Giraldo)
--- NOTE | 2017-12-14 10:24 | PN- OBGYN ---
Surgical Brief Attending Note Brief Attending Note: Made aware of my patient in the Emergency Department. She complained of shortness of breath this am with fever. Tmax 102.7 at home. Patient was discharged on 12/12/17 with Keflex. Seen in the ED and she is without complaints. She has not been breast feeding Breasts appear engorged Abdomen. Wound is with swelling and no tenderness nor erythema. Fundus firm and no tenderness Extremities with 2+ edema. fever. Started on Keflex for presumptive diagnosis of cellulitis on the . She was already on 24 hours of Unasyn. WBC did fall but stable at 14. Breast engorgement may also be adding to her hectic fever curve. Urine and blood cultures were negative on the . Imaging to assess for PE to be done given her initial presentation however clinically does not appear to be in distress of that. Pathology showed chorioamnionitis. She wasnt with intrapartum fever and did receive prophylactic antibiotics prior to csection. Albumin low with no findings of preeclampsia. Nutritional component to her edema is present. Nutritional counseling provided. Follow up imaging and will make decision regarding plan of care. doing well.
[2017-12-14] MEDS ORDERED: CEPHALEXIN500 M3 PO (10:32)
--- NOTE | 2017-12-14 11:34 | CT SCAN REPORT ---
EXAMINATION: CT ANGIOGRAM OF THE CHEST WITH CONTRAST (CT PULMONARY ANGIOGRAM FOR PE) CLINICAL INFORMATION: Cough, shortness of breath and fever for 4 days after section. Evaluate for pulmonary embolism and pneumonia. COMPARISON: No pertinent prior studies are available for comparison. TECHNIQUE: Prior to contrast administration, noncontrast localization images were obtained. Subsequently, multidetector volumetric imaging was performed from the thoracic inlet to below the diaphragms following the administration of 95 mL Optiray 320 intravenous contrast. No contrast reaction reported. Sagittal, coronal, and MIP oblique sagittal reformatted images were obtained on the CT workstation, uploaded to PACS, and reviewed. DLP: Total exam dose-length product 1316 mGy-cm (for CT exams of the chest, abdomen and pelvis) FINDINGS: QUALITY OF STUDY/CONTRAST BOLUS: Satisfactory. PULMONARY ARTERIES: The pulmonary arteries are normal in size. No embolic filling defects are identified within the main, lobar or segmental vessels. Note that streak artifact produced by dense contrast within the superior vena cava partially interferes with evaluation of an adjacent arterial branch in the medial right upper lobe. THORACIC AORTA: Normal. LUNGS AND PLEURA: Trachea is normal in caliber. The airways are patent. Interlobular septal thickening in both lungs, consistent with interstitial edema. Small bilateral pleural effusions. There is airspace opacity/consolidation of the medial right lower lobe, suspicious for pneumonia. Also, consolidation and/or atelectasis is present in the medial left lower lobe. CARDIOVASCULAR: The heart size is normal. No inward bowing of the interventricular septum. No pericardial effusion. MEDIASTINUM: The esophagus has normal wall thickness. The visualized portion of the thyroid gland is unremarkable. No mediastinal mass. LYMPHATICS: No pathologic sized axillary, hilar or mediastinal lymph nodes. UPPER ABDOMEN: No reflux of contrast into the inferior vena cava. OSSEOUS STRUCTURES: Bones of the thorax are intact. 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 EXAMINATION: CT ABDOMEN PELVIS WITH IV CONTRAST CLINICAL INFORMATION: Abdominal pain and fever for days after section. Evaluate for abscess/endometritis. COMPARISON: None. TECHNIQUE: A volumetric helical CT acquisition of the abdomen and pelvis was obtained and axial images are presented at 0.625 mm and 5 mm slice thickness. Coronal and sagittal reformatted images were generated at the technologist workstation. The images were acquired after the intravenous contrast administration for the chest. FINDINGS: LIVER, GALLBLADDER, AND BILIARY TREE: Hepatomegaly with right hepatic lobe measuring approximately 23 cm in length. No focal hepatic lesion. The gallbladder is normal. No evidence of radiopaque gallstones, wall thickening, or pericholecystic inflammatory changes. No intrahepatic or extrahepatic bile duct dilatation. PANCREAS: Unremarkable. SPLEEN: Prominent spleen measures up to 15.3 cm AP and 15.1 cm craniocaudal. No focal splenic lesion. ADRENAL GLANDS: Unremarkable. KIDNEYS AND URETERS: The kidneys have normal size, shape, and attenuation. No hydroureteronephrosis, urolithiasis or perinephric stranding. BLADDER: Unremarkable. BOWEL AND PERITONEUM: Stomach is unremarkable. Loops of bowel are normal in caliber. Within the lower abdomen and pelvis, the bowel is compressed by the uterus. Small amount of abdominal free fluid, and mild haziness of mesenteric fat, in the lower abdomen and pelvis. This partially interferes with evaluation of bowel. The appendix is not definitively seen. Given the difficulty in identifying the appendix, clinical correlation/follow-up may be needed if patient has any significant periumbilical or right lower quadrant pain. No abdominal abscess. ABDOMINAL WALL: Diffuse edema in subcutaneous tissues of the abdominal wall/anasarca. LYMPH NODES: No pathologic sized lymph nodes in the abdomen or pelvis. No inguinal lymphadenopathy. VASCULAR: Abdominal aorta is normal in caliber. Inferior vena cava is patent. PELVIC: Patient is status post section. The prominent uterus measures approximately 19 cm long, 8.7 cm AP and 12 cm transverse. Trace amount of fluid in the endometrial cavity, an expected finding in a patient. MUSCULOSKELETAL: Unremarkable. IMPRESSION: - No evidence of pulmonary embolism. - Anasarca with interstitial pulmonary edema and small pleural effusions. - Consolidation, suspicious for pneumonia, in each lower lobe. - Hepatosplenomegaly without focal hepatic or splenic lesions. - Large uterus. - Trace amount of free fluid/ascites in the abdomen and pelvis and mesenteric edema of the lower abdomen in this patient. No abscess. - The appendix is not definitively seen. Clinical follow-up recommended if patient has any periumbilical or right lower quadrant pain.
--- NOTE | 2017-12-14 14:02 | History & Physical ---
See Addendum Ravi HENAO,Richardpauline 12/14/17 1402: General Information and HPI MD Statement: I have seen and personally examined HERMINIA BONE and documented this H&P. The patient is a 22 year old F who presented with a patient stated chief complaint of [sob]. Source of Information: patient, family, old records Exam Limitations: no limitations History of Present Illness: This is a 22 yo female with no known PMH, on no chronic medications, who is , S/P , not currently breast feeding and delivery on 12/09/2017 who comes in for CC SOB and fever. She states that she woke up this morning feeling SOB with productive cought (white frothy sputum) and a Tmax of 102.7. She felt better when she sat up but when the SOB persisted, along with the fever, she came to ED. Notably her uncomplicated, she delivered at 39 weeks and 5 days a healthy male . She had manual rupture of membranes, meconium staining and and later on was found to have chorioamio on pathology. She had a low grade temperature on Dec 08 and had repeat temprature over 102 on Dec 11. Upon second fever she was started on Unasyn (12/11) and continued for one day. She was d/c on Keflex for treatment of what looks like cellulitis of her C/ S incision. She has been alternating Tylenol and Ibuprofen for pain control She denies any EPPS/N/V/D/constipation, hematuria, hematochezia, or abdominal pain other than some soreness associated with the incision but does endorse fever, LE swelling, and resolved SOB. She also reports some residual vaginal spotting but no foul smelling discharge, dysuria or hematuria. In ED she got BCX, Vanco, Ceftaz, lasix and one liter of IVF. Allergies/Medications Allergies: Coded Allergies: NO KNOWN ALLERGIES (NONE 12/14/17) Home Med list Cephalexin 500 MG CAPSULE 1 CAP PO Q6 ANTIBIOTIC, INFECTION (Reported) Ferrous Sulfate 325 MG (65 MG IRON) TABLET.DR 325 MG PO AT BEDTIME ANEMIA Ibuprofen 600 MG TABLET 600 MG PO Q6P PRN UTERINE CRAMPING Oxycodone HCl 5 MG TABLET 5 MG PO Q6P PRN PAIN SCALE 7-10 (SEVERE) Vit No.129/Iron/FA ( One Daily Tablet) 27 MG IRON-800 MCG TABLET 1 TAB PO DAILY (Reported) Compliance With Home Meds: GOOD Past History Travel History Traveled to [place] past 21 day No Medical History Neurological: NONE EENT: NONE Cardiovascular: NONE Respiratory: NONE Gastrointestinal: NONE Hepatic: NONE Renal: NONE Musculoskeletal: NONE Psychiatric: NONE Endocrine: NONE Blood Disorders: NONE Cancer(s): NONE DRUPAL PROGRAMMER/Reproductive: NONE Surgical History Surgical History: non-contributory Past Family/Social History Psychosocial History Who Do You Live With? parent Primary Language: Polish Living Will? unknown Power of Sleeve Tailor/HCP? unknown Review of Systems Review of Systems Constitutional: Reports: see HPI, fever. Denies: chills, weakness. Exam & Diagnostic Data Last 24 Hrs of Vital Signs/I&O Vital Signs Date Time Temp Pulse Resp B/P B/P Pulse O2 O2 Flow FiO2 Mean Ox Delivery Rate 12/14 1431 98.3 88 18 124/87 99 12/14 1119 98.3 83 16 146/80 94 Room Air 12/14 0922 99.2 89 16 128/64 94 Room Air 12/14 0759 101.9 130 18 125/77 92 Room Air Intake & Output 12/14 1600 12/14 0800 12/14 0000 Intake Total 0 Output Total Balance 0 Intake, Oral 0 Physical Exam General Appearance Alert, Oriented X3, Cooperative, No Acute Distress Skin INCISION ON LOWER ABDOMEN LOOKS CLEAN AND HEALING WELL Skin Temp/Moisture Exam: Hot/Dry Sepsis Skin Exam (color): Normal for Ethnicity HEENT Atraumatic, PERRLA, EOMI, Mucous Membr. moist/pink Neck Supple Cardiovascular tachycardic, no evidence of mastitis Lungs Normal Air Movement Abdomen Soft, No Tenderness Extremities 3+ edema in bialt LE Last 24 Hrs of Labs/[place]: Laboratory Tests 12/14/17 1109: Urine Color YEL, Urine Clarity CLEAR, Urine pH 6.0, Ur Specific [place] <= 1.005 , Urine Protein NEG, Urine Ketones TRACE H, Urine Nitrite NEG, Urine Bilirubin NEG, Urine Urobilinogen 0.2, Ur Leukocyte Esterase LARGE H, Ur Microscopic SEDIMENT EXAMINED, Urine RBC 5-10 H, Urine WBC 15-25 H, Ur Epithelial Cells FEW, Urine Bacteria FEW H, Urine Hemoglobin LARGE H, Urine Glucose NEG 12/14/17 1104: Lactic Acid Cancelled 12/14/17818: Anion Gap 12, Estimated GFR > 60, BUN/Creatinine Ratio 13.3, Glucose 80, Lactic Acid 0.9, Calcium 8.3 L, Total Bilirubin 0.5, AST 24, ALT 33, Alkaline Phosphatase 250 H, Igi-J-Ybatyhzodmc Pept 868 H, Total Protein 5.1 L, Albumin 2.6 L, Globulin 2.5, Albumin/Globulin Ratio 1.0 L, D-Dimer High Sensitivty 4098 H, CBC w Diff NO MAN DIFF REQ, RBC 3.10 L, MCV 88.8, MCH 30.0, MCHC 33.8, RDW 13.5, MPV 8.2, Gran % 87.7 H, Lymphocytes % 4.8 L, Monocytes % 6.6, Eosinophils % 0.9, Basophils % 0, Absolute Granulocytes 12.6 H, Absolute Lymphocytes 0.7 L, Absolute Monocytes 1.0 H, Absolute Eosinophils 0.1, Absolute Basophils 0 Microbiology 12/14 1318 URINE ROUT: Urine Culture - COLB 12/14 1318 LOWER RESP: Respiratory Culture - COLB 12/14 1318 LOWER RESP: Gram Stain - COLB 12/14 837 BLOOD: Blood Culture - RECD 12/14 818 BLOOD: Blood Culture - RECD Assessment/Plan Assessment: This is a 22 yo F. , s/p C/S on 12/09/2017 who comes in for CC SOB and fever. Upon admission give, fever, tachycardia, leukocytosis there is concern for sepsis. The DDX for source of infection in this patient includes PNA ( aspiration vs. CAP vs. Healthcare associated), and endometritis, given that she had chorioamnionitis, meconium staining, C/S. Her SOFA score is 1. --------- PLAN: Sepsis 2/2 PNA vs Endometritis: We will cover broad spectrum, including anaerobes given c/o C/S and aspiration PNA. She got one liter of fluids in ED, but given c/o of SOB and anasarca she was also diuresed at the same time. When I saw her, she was edematous and no longer as tachycardic as she was when she first came. I am holding off fluids at this time. Her BP is stable. Should she show any signs of hypotension or deterioration will start IVF. * Monitor BCX * Monitor UCX * Monitor Sputum CX * Trend CBC * Appreciate ID recs * She got one dose of Ceftaz/Vanco in ED, will add Unasyn at this time. Will stop Ceftaz and Vanco and continue JUST on Unasyn pending ID recs * Monitor on telemetry given she was tachy up to 130 on admission * Appreciate NAVAL ARCHITECT SPECIALIST recs Hepato-splenomegaly: Unsure of etiology. Con't monitor.By CT her spleen measured about 15x15. * Con't monitor SOB: DDX PNA; however given anasarca, elevated BNP and SOB will obtain Echo to r /o post- cardiomyopathy. CT weith c/o bilat LL consolidation. Negative for PE. Notably her Dimer is 4098 and BNP 868. * Echo * Abx as above * CX as above Hypokalemia: Replete. Likely also due to Lasix administration in ED. * Monitor BEP * Check mag Anemia: Stable since C/S. * Monitor H/H Hypo-albuminemia: * Check UA * Protein/Cr ratio Pyuria: Though UA has LE, 15-25 WBC and some abad, pt has no symptoms. UTI is lower on the differential as cause of her sepsis. However, the abx given above would cover for most urinary pathogens. * Monitor for urinary symptoms * ABX as above HHD FC CHem dvt ppx As Ranked By This Provider Problem List: 1. Pulmonary edema Qualifiers Chronicity: acute Qualified Code: J81.0 - Acute pulmonary edema Core Measures/Misc (12/14) Acute Coronary Syndrome ACS Diagnosis: No Congestive Heart Failure Congestive Heart Failure Diagnosis No Cerebrovascular Accident CVA/TIA Diagnosis: No VTE (View Protocol) VTE Risk Factors Acute Medical Illness No Mechanical VTE Prophylaxis d/t N/A MechProphylax Ordered No VTE Pharm Prophylaxis d/t NA PharmProphylax ordered Sepsis (View protocol) Sepsis Present: Yes If YES complete Sepsis Event Note If YES complete Sepsis Event Note Rudy Millard MD 12/15/17 1201: Core Measures/Misc (12/14) Sepsis (View protocol) If YES complete Sepsis Event Note If YES complete Sepsis Event Note Attending MD Review Statement Attending Statement Attending MD Statement: examined this patient, discuss w/resident/PA/WELFARE ANALYST, agreed w/resident/PA/WELFARE ANALYST, reviewed EMR data (avail) Attending Assessment/Plan: 22F s/p on 12/09/2017 presenting with progressive shortness of breath, dyspnea on exertion, and orthopnea since being discharged on 12/12. She is also febrile 102.7 with normal BP and HR. She feels overall swollen and her legs are edematous. She has a mild frothy cough. Had been treated with Cephalexin for presumed cellulitis as an outpatient. She denies chest pain, lightheadedness, palpitations, abdominal pain, diarrhea, dysuria. WBC 14, CTA chest shows no PE but anasarca. 1. Anasarca 2. Fever 3. Post- Plan - Admit to telemetry - Echocardiogram - Lasix 40mg IV - I/O, daily weights - Continue Unasyn - Follow cultures - ID and obsetrics consult - DVT PPx
[2017-12-14 14:45] VITALS: BP 138/74
--- NOTE | 2017-12-14 16:50 | Cons- Infect Disease ---
General Information and HPI Consulting Request Date of Consult: 12/14/17 Requested By: Rudy Millard MD Reason for Consult: fever Source of Information: patient, family, old records History of Present Illness: This is a 22-year-old woman status post 5 days prior to admission because of an arrest of dilation and malrotation, with a low-grade fever preop, begun on Unasyn one day postop because of an increased temperature and white blood cell count (with blood cultures 2 negative) discharged 2 days later, with a decreasing white blood cell count, on Keflex for a possible wound infection ( with the pathology of the placenta revealing acute chorioamnionitis) admitted today after presenting to the emergency room with the acute onset of shortness of breath, with a minimal cough, productive of white sputum, and persistent fever, with no chest pain, GI or complaints. On arrival to the emergency room she was febrile to 101.9, with an O2 sat of 92% on room air. Laboratory data revealed a white blood cell count of 14,000, BUN/creatinine 8 and 0.6, alkaline phosphatase 250, d-dimer 4098. Urinalysis 5-10 RBC/15-25 WBCs. CTA of the chest was negative for pulmonary emboli, but revealed interstitial edema, small bilateral pleural effusions, airspace opacity/consolidation of the medial right lower lobe and consolidation and/or atelectasis in the medial left lower lobe. CT of the abdomen and pelvis revealed hepatosplenomegaly with a large uterus and a trace amount of free fluid/ascites in the abdomen and pelvis. She was given Vancomycin and Ceftazidime in the emergency room. Allergies/Medications Allergies: Coded Allergies: NO KNOWN ALLERGIES (NONE 12/14/17) Home Med List: Cephalexin 500 MG CAPSULE 1 CAP PO Q6 ANTIBIOTIC, INFECTION (Reported) Ferrous Sulfate 325 MG (65 MG IRON) TABLET.DR 325 MG PO AT BEDTIME ANEMIA Ibuprofen 600 MG TABLET 600 MG PO Q6P PRN UTERINE CRAMPING Oxycodone HCl 5 MG TABLET 5 MG PO Q6P PRN PAIN SCALE 7-10 (SEVERE) Vit No.129/Iron/FA ( One Daily Tablet) 27 MG IRON-800 MCG TABLET 1 TAB PO DAILY (Reported) Past History Travel History Traveled to [place] past 21 day No Medical History Neurological: NONE EENT: NONE Cardiovascular: NONE Respiratory: NONE Gastrointestinal: NONE Hepatic: NONE Renal: NONE Musculoskeletal: NONE Psychiatric: NONE Endocrine: NONE Blood Disorders: NONE Cancer(s): NONE ETCHER AIRCRAFT/Reproductive: NONE Isolation History: Standard Surgical History Surgical History: Psychosocial History Who Do You Live With? parent Primary Language: Cypriot Living Will? unknown Power of Plant And Machinery Valuer/HCP? unknown Review of Systems Review of Systems Constitutional: Reports: chills. EENTM: Denies: throat pain. Cardiovascular: Denies: chest pain. GI: Denies: abdominal pain, diarrhea, nausea, vomiting. Genitourinary: Reports: no symptoms. Musculoskeletal: Denies: back pain. Skin: Denies: rash. All Other Systems: Reviewed and Negative Exam & Diagnostic Data Last 24 Hrs of Vital Signs/I&O Vital Signs Date Time Temp Pulse Resp B/P B/P Pulse O2 O2 Flow FiO2 Mean Ox Delivery Rate 12/14 1554 102.7 12/14 1431 98.3 88 18 124/87 99 12/14 1119 98.3 83 16 146/80 94 Room Air 12/14 0922 99.2 89 16 128/64 94 Room Air 12/14 0759 101.9 130 18 125/77 92 Room Air Intake & Output 12/14 1600 12/14 0800 12/14 0000 Intake Total 0 Output Total Balance 0 Intake, Oral 0 Physical Exam Other Physical Findings: She is awake and alert in no acute distress. T-max 102.7. Skin reveals no rash. HEENT exam is negative. Neck is supple with no adenopathy. Lungs are clear. Heart regular rhythm with no murmur. Abdomen is obese, soft, nontender with positive bowel sounds; incision is clean, with no erythema or drainage. Back no CVA tenderness. Extremities 2+ edema both lower extremities. Neuro is without focality. Last 24 Hours of Lab Results: Laboratory Tests 12/14 12/14 1109 1104 Chemistry Lactic Acid Cancelled Urines Urine Color (YEL,AMB,STR) YEL Urine Clarity (CLEAR) CLEAR Urine pH (5.0 - 8.0) 6.0 Ur Specific [place] (1.001 - 1.035) <= 1.005 Urine Protein (NEG,<30 MG/DL) NEG Urine Ketones (NEG) TRACE H Urine Nitrite (NEG) NEG Urine Bilirubin (NEG) NEG Urine Urobilinogen (0.1 - 1.0 EU/dl) 0.2 Ur Leukocyte Esterase (NEG) LARGE H Ur Microscopic SEDIMENT EXAMINED Urine RBC (0 - 5 /HPF) 5-10 H Urine WBC (0 - 2 /HPF) 15-25 H Ur Epithelial Cells (NONE,FEW) FEW Urine Bacteria (NEG/NONE) FEW H Urine Hemoglobin (NEG) LARGE H Ur Random Creatinine (mg/dL) 28.3 U Random Total Protein (0 - 12 mg/dL) 20 H Protein/Creatinin Ratio (< 0.2) 0.7 H Urine Glucose (N MG/DL) NEG 12/14 0819 Chemistry Sodium (137 - 145 mmol/L) 139 Potassium (3.5 - 5.1 mmol/L) 3.2 L Chloride (98 - 107 mmol/L) 105 Carbon Dioxide (22 - 30 mmol/L) 22 Anion Gap (5 - 16) 12 BUN (7 - 17 mg/dL) 8 Creatinine (0.5 - 1.0 mg/dL) 0.6 Estimated GFR (>60 ml/min) > 60 BUN/Creatinine Ratio (7 - 25 %) 13.3 Glucose (65 - 99 mg/dL) 80 Lactic Acid (0.7 - 2.1 mmol/L) 0.9 Calcium (8.4 - 10.2 mg/dL) 8.3 L Total Bilirubin (0.2 - 1.3 mg/dL) 0.5 AST (14 - 36 U/L) 24 ALT (9 - 52 U/L) 33 Alkaline Phosphatase (<127 U/L) 250 H Xxy-V-Ljukevboaea Pept (<125 pg/mL) 868 H Total Protein (6.3 - 8.2 g/dL) 5.1 L Albumin (3.5 - 5.0 g/dL) 2.6 L Globulin (1.9 - 4.2 gm/dL) 2.5 Albumin/Globulin Ratio (1.1 - 2.2 %) 1.0 L Coagulation D-Dimer High Sensitivty (0 - 243 ng/ml) 4098 H Hematology CBC w Diff NO MAN DIFF REQ WBC (4.8 - 10.8 /CUMM) 14.3 H RBC (4.20 - 5.40 /CUMM) 3.10 L Hgb (12.0 - 16.0 G/DL) 9.3 L Hct (37 - 47 %) 27.5 L MCV (81.0 - 99.0 FL) 88.8 MCH (27.0 - 31.0 PG) 30.0 MCHC (33.0 - 37.0 G/DL) 33.8 RDW (11.5 - 14.5 %) 13.5 Plt Count (130 - 400 /CUMM) 242 MPV (7.4 - 10.4 FL) 8.2 Gran % (42.2 - 75.2 %) 87.7 H Lymphocytes % (20.5 - 51.1 %) 4.8 L Monocytes % (1.7 - 9.3 %) 6.6 Eosinophils % (0 - 5 %) 0.9 Basophils % (0.0 - 2.0 %) 0 Absolute Granulocytes (1.4 - 6.5 /CUMM) 12.6 H Absolute Lymphocytes (1.2 - 3.4 /CUMM) 0.7 L Absolute Monocytes (0.10 - 0.60 /CUMM) 1.0 H Absolute Eosinophils (0.0 - 0.7 /CUMM) 0.1 Absolute Basophils (0.0 - 0.2 /CUMM) 0 Last 24 Hours of [place] Results: Blood cultures x 2 December 14 pending Urine culture December 14 pending Diagnostic Data Recent Imaging Findings: CTA of the chest was negative for pulmonary emboli, but revealed interstitial edema, small bilateral pleural effusions, airspace opacity/consolidation of the medial right lower lobe and consolidation and/or atelectasis in the medial left lower lobe. CT of the abdomen and pelvis revealed hepatosplenomegaly with a large uterus and a trace amount of free fluid/ascites in the abdomen and pelvis. Assessment/Plan Assessment/Plan Impression: This is a 22-year-old woman status post 5 days prior to admission, because of an arrest of dilation and malrotation, with a peripartum fever and leukocytosis, treated empirically with Unasyn for possible endometritis and discharged on Keflex for a possible wound infection, admitted today with the acute onset of shortness of breath and persistent fever, found to be febrile with a leukocytosis and with a CTA of the chest, abdomen and pelvis revealing interstitial edema and bibasilar densities. The etiology of her fever is unclear. Possibilities include endometritis, given her peripartum fever and evidence on the placental pathology of chorioamnionitis , though she does not appear to have any significant lower abdominal pain or tenderness, pneumonia, with her complaint of shortness of breath and bibasilar densities on the CT of the chest, though her lungs are clear and she is oxygenating well, a urinary tract infection, with pyuria noted on her UA, though she has no urinary complaints, or septic pelvic thrombophlebitis, which may present in a sterile manner. She is fluid overloaded, with bilateral lower extremity edema, and she has been evaluated by [employer], with no findings for preeclampsia. She will need to be continued on empiric antibiotics but feel that Unasyn, which was given , should be adequate pending cultures and further evaluation. Suggestion: 1. Attempt to obtain a sputum culture if possible 2. Follow-up recent cultures 3. Further evaluation if her fevers persist 4. Would begin Unasyn 3 g IV every 6 hours pending above Consult Acknowledgment - Thank you for your consult request.
[2017-12-14 21:56] VITALS: BP 140/70
--- NOTE | 2017-12-14 22:14 | Sepsis Event Note ---
Sepsis Event Note Severe Sepsis Severe Sepsis Present: No Septic Shock Septic Shock Present: No Event Note Event Note: febrile with leukocytosis and tachycardia. Without lactic acid or hypotension suggestive of end organ damage. Sepsis Focused Exam Sepsis Cardiac Exam: Tachycardia Sepsis Resp Exam: CTA Sepsis Cap Refill Exam: <2 Sec Sepsis Peripheral Pulse Exam: Bounding Sepsis Peripheral Pulse Location: Radial Sepsis Skin Exam (color): Normal for Ethnicity Skin Temp/Moisture Exam: Warm/Dry
--- NOTE | 2017-12-15 06:42 | PN- Housestaff ---
[facility]NAO,[facility] 12[facility] 0641: Subjective Follow-up For: post fever Tele-Events Since Last Visit: tachycardic up to 120-130s Subjective: Saw pt at bedside this AM. She looks much [place] and states that she feels much better. She did have a fever through last night and was tachycardic Review of Systems Constitutional: Reports: fever. Denies: chills. EENTM: Reports: no symptoms. Cardiovascular: Reports: edema. Denies: chest pain. Respiratory: Reports: cough. Denies: orthopnea, short of breath. Gastrointestinal: Denies: abdominal pain, constipation. Genitourinary: Reports: frequency. Objective Last 24 Hrs of Vital Signs/I&O Vital Signs Date Time Temp Pulse Resp B/P B/P Pulse O2 O2 Flow FiO2 Mean Ox Delivery Rate 12/15 0652 98.4 68 20 110/60 95 Room Air 12/15 0000 Room Air 12/14 2251 100.6 12/14 2156 101.3 112 15 140/70 96 Room Air 12/14 2110 101.2 12/14 2021 102.3 12/14 1650 101.6 12/14 1650 101.6 12/14 1554 102.7 12/14 1445 102.7 110 22 138/74 100 Room Air 12/14 1445 100 Room Air 12/14 1431 98.3 88 18 124/87 99 12/14 1119 98.3 83 16 146/80 94 Room Air Intake & Output 12/15 1600 12/15 0800 12/15 0000 Intake Total 360 840 Output Total Balance 360 840 Intake, IV 240 360 Intake, Oral 120 480 Number 0 Bowel Movements Patient 110.677 kg Weight Physical Exam General Appearance: Alert, Oriented X3, Cooperative, No Acute Distress Skin: No Significant Lesion HEENT: Atraumatic, PERRLA, EOMI Cardiovascular: tachycardic Lungs: Normal Air Movement Abdomen: Soft, incision healing well without drainage or erythema Extremities: 2+ edema but much better than yesterday Current Medications: Current Medications Sig/Ni Start time Last Medication Dose Route Stop Time Status Admin Acetaminophen 0 .STK-MED ONE 12/14 1546 DC IV Acetaminophen 1,000 MG Q6P PRN 12/14 1530 AC 12/14 N/A 1 UNIT IV 2020 Ampicillin Sodium/ 3,000 MG Q6 12/14 1800 AC 12/15 Sulbactam Sodium IV 06 Sodium Chloride 100 ML Ampicillin Sodium/ 1,500 MG ONCE ONE 12/14 1430 DC 12/14 Sulbactam Sodium IV 12/14 1459 1659 Sodium Chloride 100 ML Ceftazidime 0 .STK-MED ONE 12/14 1209 DC .ROUTE Ceftazidime 1,000 MG ONCE ONE 12/14 1145 DC 12/14 IV 12/14 1146 1219 Enoxaparin Sodium 40 MG DAILY 12/15 0900 AC 12/15 SC 1020 Furosemide 0 .STK-MED ONE 12/14 1209 DC IV Furosemide 40 MG ONCE ONE 12/14 1145 DC 12/14 IV 12/14 1146 1219 Ibuprofen 600 MG Q6P PRN 12/14 1415 DC PO Influenza Virus 0.5 ML ONCE ONE 12/14 2045 DC Vaccine IM 12/14 2046 Ketorolac 15 MG Q6P PRN 12/14 1415 DC Tromethamine IV Ondansetron HCl 4 MG Q6P PRN 12/14 1415 AC IV Potassium Chloride 20 MEQ Q1 12/15 1100 AC 12/15 PO 12/15 1201 1021 Potassium Chloride 40 MEQ ONCE ONE 12/15 1000 DC 12/15 PO 12/15 1001 1021 Potassium Chloride 40 MEQ ONCE ONE 12/14 1515 DC 12/14 PO 12/14 1516 1700 Potassium Chloride 0 .STK-MED ONE 12/14 1340 DC PO Potassium Chloride 40 MEQ 1330 12/14 1330 DC 12/14 PO 12/14 1331 1339 Vancomycin HCl 0 .STK-MED ONE 12/14 1209 DC .ROUTE Vancomycin HCl 1,000 MG ONCE ONE 12/14 1145 DC 12/14 Sodium Chloride 250 ML IV 12/14 1244 1219 Last 24 Hrs of Lab/[place] Results Last 24 Hrs of Labs/Mics: Laboratory Tests 12/15/17 0720: Anion Gap 9, Estimated GFR > 60, BUN/Creatinine Ratio 11.7, Albumin 2.4 L, CBC w Diff NO MAN DIFF REQ, RBC 2.84 L, MCV 88.7, MCH 29.6, MCHC 33.4, RDW 14.3, MPV 7.8, Gran % 77.3 H, Lymphocytes % 11.6 L, Monocytes % 10.2 H, Eosinophils % 0.6, Basophils % 0.3, Absolute Granulocytes 9.8 H, Absolute Lymphocytes 1.5, Absolute Monocytes 1.3 H, Absolute Eosinophils 0.1, Absolute Basophils 0 Microbiology 12/14 1703 LOWER RESP: Respiratory Culture - COLB 12/14 1702 LOWER RESP: Gram Stain - COLB 12/14 1319 LOWER RESP: Respiratory Culture - COLB 12/14 1318 LOWER RESP: Gram Stain - COLB Assessment/Plan Assessment: This is a 22 yo F. , s/p C/S for arrest of dilation on 12/09/2017 with subsequent post- fever and leukocytosis for who comes in for CC SOB and fever. Upon admission given, fever, tachycardia, leukocytosis there is concern for sepsis. The DDX for source of infection in this patient includes PNA ( aspiration vs. CAP vs. Healthcare associated) and endometritis, given that she had chorioamnionitis on pathology, meconium staining, and a C/S. Her SOFA score is 1. --------- PLAN: Sepsis 2/2 PNA vs Endometritis: Given her clear lung exam it seems more likely that she has endometritis, but she has little to no abdominal discomfort. She got unasyn yesterday (3g q6hrs) and her white count seems to be improving from 14-->12.7. * Monitor BCX-NGTD * Monitor UCX-NGTD * Monitor Sputum CX-NGTD * Appreciate ID recs * Continue Unasyn * Monitor on telemetry given she was tachy up to 130 on admission * Appreciate CRM SYSTEM ADMINISTRATOR recs Hepato-splenomegaly: Unsure of etiology. Con't monitor.By CT her spleen measured about 15x15. * Con't monitor * F/u outpt SOB: CT with c/o bilat LL consolidation. Negative for PE. Notably her Dimer is 4098 and BNP 868. US WNL and EF 65-70%. * Abx as above * CX as above Hypokalemia: Replete. Likely also due to Lasix administration in ED. * Monitor BEP * Check mag Anemia: Stable since C/S. * Monitor H/H Hypo-albuminemia: Her protein/cr ratio is elevated but she doesn't have other RF such as htn to suggest pre-eclampsia. Pyuria: Though UA has LE, 15-25 WBC and some abad, pt has no symptoms. UTI is lower on the differential as cause of her sepsis. However, the abx given above would cover for most urinary pathogens. * Monitor for urinary symptoms * ABX as above HHD FC CHem dvt ppx Problem List: 1. Pulmonary edema Pain Ratin Pain Location: none Pain Goal: Remain pain free Pain Plan: current reg Tomorrow's Labs & Rationales: cbc bep Rudy Millard MD 12/15/17 1204: Attending MD Review Statement Attending Statement Attending MD Statement: examined this patient, discuss w/resident/PA/PLAYGROUND EQUIPMENT ERECTOR, agreed w/resident/PA/PLAYGROUND EQUIPMENT ERECTOR, reviewed EMR data (avail) Attending Assessment/Plan: 22F s/p on 12/09/2017 presenting with progressive shortness of breath, dyspnea on exertion, and orthopnea since being discharged on 12/12. She is also febrile 102.7 with normal BP and HR. She feels overall swollen and her legs are edematous. She has a mild frothy cough. Had been treated with Cephalexin for presumed cellulitis as an outpatient. Feels better today. Leg edema is vastly improved, as is breathing. She spiked 102.7 again. Cultures negative. Placental pathology shows chorioamnionitis with meconium staining. 1. Anasarca 2. Endometritis Plan - Continue to telemetry - Echocardiogram shows EF 65% without valvular disease - Continue Lasix 40mg IV daily - I/O, daily weights - Continue Unasyn - Follow cultures - ID and obsetrics consult - DVT PPx
[2017-12-15 06:52] VITALS: BP 110/60
--- NOTE | 2017-12-15 07:55 | ECHOCARDIOGRAM REPORT ---
HERMINIA BONE Age: 22 : 1995 Gender: F Exam Date: 12/14/2017 20:14 Exam Location: 1 [address] Ht (in): 67 Wt (lb): 235 BSA: 2.29 BP: 124 / 87 Ordering Physician: Michelle Rodrigues MD Referring Physician: Michelle Rodrigues MD Technologist: Fozia Griffin [facility] Room Number: 178-01 Indications: Shortness of breath Rhythm: Sinus Technical Quality: fair FINDINGS Left Ventricle Normal global left ventricular size, wall thickness, systolic function with no obvious regional wall motion abnormalities. Normal left ventricular ejection fraction estimated at 65-70%. Right Ventricle Normal right ventricular size and function. Right Atrium Normal right atrial size. Left Atrium Left atrial size at the upper limits of normal. Mitral Valve Mitral valve normal in structure and function. Mild mitral regurgitation. Aortic Valve Aortic valve is normal in structure and function. Tricuspid Valve Tricuspid valve is normal in structure and function. Trace to mild tricuspid regurgitation. Right ventricular systolic pressure estimated to be within the normal range at 20 mmHg. Pulmonic Valve Pulmonic valve not well visualized, grossly normal. Pericardium Minimal pericardial effusion (normal variant). Great Vessels Normal size aortic root. CONCLUSIONS Tachycardia throughout the recording. Normal left ventricular systolic function. No significant valvualar abnormalities. Juan C Lares M.D. (Electronically Signed) Final Date: 15 December 2017 07:54 MEASUREMENTS (Male / Female) Normal Values 2D ECHO LV Diastolic Diameter PLAX 4.6 cm 4.2 - 5.9 / 3.9 - 5.3 cm LV Systolic Diameter PLAX 3.1 cm 2.1 - 4.0 cm LV Fractional Shortening PLAX 32.6 % 25 - 46 % LV Ejection Fraction 2D Teich 61.0 % IVS Diastolic Thickness 1.1 cm LVPW Diastolic Thickness 0.8 cm LV Relative Wall Thickness 0.4 RV Internal Dim ED PLAX 3.4 cm 1.9 - 3.8 cm LVOT Diameter 2.1 cm Aortic Root Diameter 2.8 cm LA Systolic Diameter LX 4.2 cm 3.0 - 4.0 / 2.7 - 3.8 cm LA Volume 43.0 cm 18 - 58 / 22 - 52 cm Ascending Aorta Diameter 2.9 cm DOPPLER AV Peak Velocity 196.0 cm/s AV Peak Gradient 15.4 mmHg AV Mean Velocity 124.0 cm/s AV Mean Gradient 7.0 mmHg AV Velocity Time Integral 33.5 cm LVOT Peak Velocity 149.0 cm/s LVOT Peak Gradient 8.9 mmHg LVOT Mean Velocity 94.8 cm/s LVOT Mean Gradient 4.0 mmHg LVOT Velocity Time Integral 24.6 cm LVOT Stroke Volume 85.2 cm AV Area Cont Eq vti 2.5 cm AV Area Cont Eq pk 2.6 cm MV Peak Velocity 171.0 cm/s MV Peak Gradient 11.7 mmHg MV Mean Velocity 97.7 cm/s MV Mean Gradient 5.0 mmHg Mitral E Point Velocity 141.0 cm/s Mitral A Point Velocity 133.0 cm/s Mitral E to A Ratio 1.1 MV PHT Velocity 145.0 cm/s MV Deceleration [place] 468.0 cm/s MV Pressure Half Time 92.9 ms MV Area PHT 2.4 cm MV Deceleration Time 119.0 ms TR Peak Velocity 140.0 cm/s TR Peak Gradient 7.8 mmHg Right Atrial Pressure 5.0 mmHg Pulmonary Artery Systolic Pressure 12.8 mmHg Right Ventricular Systolic Pressure 12.8 mmHg PV Peak Velocity 130.0 cm/s PV Peak Gradient 6.8 mmHg PV Mean Velocity 84.9 cm/s PV Mean Gradient 3.0 mmHg PV Velocity Time Integral 28.3 cm LV E' Lateral Velocity 22.7 cm/s Mitral E to LV E' Lateral Ratio 6.2 LV E' Septal Velocity 21.4 cm/s Mitral E to LV E' Septal Ratio 6.6
[2017-12-15 08:35] LABS: ABSOLUTE BASOPHIL COUNT 0 /CUMM (0.0-0.2); ABSOLUTE EOSINOPHIL COUNT 0.1 /CUMM (0.0-0.7); ABSOLUTE GRANULOCYTE CT 9.8 /CUMM (1.4-6.5); ABSOLUTE LYMPH COUNT 1.5 /CUMM (1.2-3.4); ABSOLUTE MONOCYTE COUNT 1.3 /CUMM (0.10-0.60); BASOPHIL % 0.3 % (0.0-2.0); EOSINOPHIL % 0.6 % (0-5); GRANULOCYTE % 77.3 % (42.2-75.2); HEMATOCRIT 25.2 % (37-47); MEAN CORPUSCULAR HGB 29.6 PG (27.0-31.0); MEAN CORPUSCULAR HGB CONC 33.4 G/DL (33.0-37.0); MEAN CORPUSCULAR VOLUME 88.7 FL (81.0-99.0); MEAN PLATELET VOLUME 7.8 FL (7.4-10.4); PLATELET COUNT 247 /CUMM (130-400); RBC DISTRIBUTION WIDTH 14.3 % (11.5-14.5); RED BLOOD CELL CT 2.84 /CUMM (4.20-5.40); WHITE BLOOD CELL COUNT 12.7 /CUMM (4.8-10.8)
--- NOTE | 2017-12-15 09:56 | PN- OBGYN ---
Surgical Brief Attending Note Brief Attending Note: Seen and evaluated. Patient states feeling better and less swollen Denies cough, shortness of breath and denies abdominal pain. Tmax 102.7 and now afebrile 110/60 Pulse 68 Lungs clear Cor regular rate Abdomen. Soft and nontender. Fundus at 18 cm and firm without tenderness. Wound intact and no drainage but only some slight induration without erythema. Extremities. 1+ edema and negative homans. No induration at IV sites, no skin breakdown noted Neuro. Aox3 and no sensory nor motor deficits noted. Micro. Cultures of urine, sputum and blood pending WBC 14.3 to 12.7 Hct 27.5 to 25.2 Echocardiogram. Tachycardia throughout the recording. Normal left ventricular systolic function. No significant valvualar abnormalities. Meds. Unasyn. Motrin and tylenol HD#2 and POD#7 for this patient with complicated by obesity and excess weight gain admitted with fluid overload and fever with leukocytosis s/p low transverse csection for arrest of dilatation. ID. Empiric treatment for endometritis on Unasyn. Risks being meconium stained fluid and findings of chorioamnionitis on placenta. WBC downtrending. Watch fever curve. Once 48 hours without fever than dc planning. At present wound appears intact and no findings of cellulitis. Recommend addition of probiotics to reduce antibiotic associated diarrhea. Heme. Low but stable hematocrit. Recommend add vitamin c for wound healing and iron for nutritional support in the setting. VTE prophylaxis with lovenox. This given multiple risk factors for vte (surgery , and infection) Cardiac. No manifestations of peripartum cardiomyopathy. More likely fluid overload. Daily weights to assess for improvement in volume status. She is s/p lasix. No evidence of preeclampsia despite having an elevated P/C ratio. ( Normotensive and no symptoms of same and normal lab values). Pain management. Recommend Motrin and oral Tylenol. GI. Tolerating diet. Immunization. She is s/p Tdap in September 2017. I will give her Influenza vaccine for [id number] at follow up. Goals for patient reviewed and treatment plan reviewed. Any questions please contact me. Thank you. Discussed care plan with Dr Breaux of ID on 12/15/17
--- NOTE | 2017-12-15 11:11 | PN- Infect Dx ---
Subjective Subjective: T-max 102.7. She feels much improved today with no further shortness of breath and no other complaints. Objective Last 24 Hrs of Vital Signs/I&O Vital Signs Date Time Temp Pulse Resp B/P B/P Pulse O2 O2 Flow FiO2 Mean Ox Delivery Rate 12/15 0652 98.4 68 20 110/60 95 Room Air 12/15 0000 Room Air 12/14 2251 100.6 12/14 2156 101.3 112 15 140/70 96 Room Air 12/14 2110 101.2 12/14 2021 102.3 12/14 1650 101.6 12/14 1650 101.6 12/14 1554 102.7 12/14 1445 102.7 110 22 138/74 100 Room Air 12/14 1445 100 Room Air 12/14 1431 98.3 88 18 124/87 99 12/14 1119 98.3 83 16 146/80 94 Room Air Intake & Output 12/15 1600 12/15 0800 12/15 0000 Intake Total 360 840 Output Total Balance 360 840 Intake, IV 240 360 Intake, Oral 120 480 Number 0 Bowel Movements Patient 244 lb Weight Physical Exam Other Physical Findings: She appears comfortable in no acute distress Skin no rash Lungs are clear Heart regular rhythm with no murmur Abdomen is soft, nontender with positive bowel sounds; lower abdominal incision clean, with no erythema or drainage Extremities 1+ edema both lower extremities Results Last 24 Hours of Lab Results: Laboratory Tests 12/15 12/14 0720 1109 Chemistry Sodium (137 - 145 mmol/L) 138 Potassium (3.5 - 5.1 mmol/L) 3.2 L Chloride (98 - 107 mmol/L) 107 Carbon Dioxide (22 - 30 mmol/L) 22 Anion Gap (5 - 16) 9 BUN (7 - 17 mg/dL) 7 Creatinine (0.5 - 1.0 mg/dL) 0.6 Estimated GFR (>60 ml/min) > 60 BUN/Creatinine Ratio (7 - 25 %) 11.7 Albumin (3.5 - 5.0 g/dL) 2.4 L Hematology CBC w Diff NO MAN DIFF REQ WBC (4.8 - 10.8 /CUMM) 12.7 H RBC (4.20 - 5.40 /CUMM) 2.84 L Hgb (12.0 - 16.0 G/DL) 8.4 L Hct (37 - 47 %) 25.2 L MCV (81.0 - 99.0 FL) 88.7 MCH (27.0 - 31.0 PG) 29.6 MCHC (33.0 - 37.0 G/DL) 33.4 RDW (11.5 - 14.5 %) 14.3 Plt Count (130 - 400 /CUMM) 247 MPV (7.4 - 10.4 FL) 7.8 Gran % (42.2 - 75.2 %) 77.3 H Lymphocytes % (20.5 - 51.1 %) 11.6 L Monocytes % (1.7 - 9.3 %) 10.2 H Eosinophils % (0 - 5 %) 0.6 Basophils % (0.0 - 2.0 %) 0.3 Absolute Granulocytes (1.4 - 6.5 /CUMM) 9.8 H Absolute Lymphocytes (1.2 - 3.4 /CUMM) 1.5 Absolute Monocytes (0.10 - 0.60 /CUMM) 1.3 H Absolute Eosinophils (0.0 - 0.7 /CUMM) 0.1 Absolute Basophils (0.0 - 0.2 /CUMM) 0 Urines Urine Color (YEL,AMB,STR) YEL Urine Clarity (CLEAR) CLEAR Urine pH (5.0 - 8.0) 6.0 Ur Specific [place] (1.001 - 1.035) <= 1.005 Urine Protein (NEG,<30 MG/DL) NEG Urine Ketones (NEG) TRACE H Urine Nitrite (NEG) NEG Urine Bilirubin (NEG) NEG Urine Urobilinogen (0.1 - 1.0 EU/dl) 0.2 Ur Leukocyte Esterase (NEG) LARGE H Ur Microscopic SEDIMENT EXAMINED Urine RBC (0 - 5 /HPF) 5-10 H Urine WBC (0 - 2 /HPF) 15-25 H Ur Epithelial Cells (NONE,FEW) FEW Urine Bacteria (NEG/NONE) FEW H Urine Hemoglobin (NEG) LARGE H Urine Glucose (N MG/DL) NEG 12/14 1104 Chemistry Lactic Acid Cancelled Urines Ur Random Creatinine (mg/dL) 28.3 U Random Total Protein (0 - 12 mg/dL) 20 H Protein/Creatinin Ratio (< 0.2) 0.7 H Last 24 Hours of [place] Results: Blood cultures December 14 negative Urine culture December 14 negative Assessment/Plan ID Impression: Improved, with her temperatures lower today and with her white blood cell count also decreased, on empiric treatment with Unasyn for possible endometritis, with meconium-stained fluid and with the placental pathology positive for chorioamnionitis. She has little evidence for pneumonia, with her respiratory status remaining stable. She is fluid overloaded, status post 1 dose of Lasix yesterday, but this is not likely to explain her fever and leukocytosis. Suggestion: 1. Follow-up recent cultures 2. Continue Unasyn
[2017-12-15 14:52] VITALS: BP 160/90
[2017-12-15 19:40] LABS: ABSOLUTE BASOPHIL COUNT 0 /CUMM (0.0-0.2); ABSOLUTE EOSINOPHIL COUNT 0.1 /CUMM (0.0-0.7); ABSOLUTE GRANULOCYTE CT 10.5 /CUMM (1.4-6.5); ABSOLUTE LYMPH COUNT 1.4 /CUMM (1.2-3.4); ABSOLUTE MONOCYTE COUNT 1.3 /CUMM (0.10-0.60); BASOPHIL % 0.2 % (0.0-2.0); EOSINOPHIL % 0.9 % (0-5); GRANULOCYTE % 78.4 % (42.2-75.2); HEMATOCRIT 25.5 % (37-47); MEAN CORPUSCULAR HGB 30.1 PG (27.0-31.0); MEAN CORPUSCULAR HGB CONC 34.4 G/DL (33.0-37.0); MEAN CORPUSCULAR VOLUME 87.5 FL (81.0-99.0); MEAN PLATELET VOLUME 7.3 FL (7.4-10.4); PLATELET COUNT 276 /CUMM (130-400); RBC DISTRIBUTION WIDTH 14.2 % (11.5-14.5); RED BLOOD CELL CT 2.91 /CUMM (4.20-5.40); WHITE BLOOD CELL COUNT 13.4 /CUMM (4.8-10.8)
[2017-12-15 22:10] VITALS: BP 144/77
--- NOTE | 2017-12-16 06:37 | PN- Housestaff ---
[facility] 12/16/17 0636: Subjective Follow-up For: Post fever Subjective: Saw pt at bedside this AM. Apparently last night she had several complaints of diarrhea; c.diff sent. She also complained of l. hand swelling and was noted to be tachycardic with mild exertion up to 130. Family had several questions which were answered by Dr. Kamara in the evening. Tmax last night was 101.2 at 18:31; BP max 160/90 at 14:52. Review of Systems Constitutional: Denies: chills, fever, weakness. EENTM: Reports: no symptoms. Cardiovascular: Denies: chest pain. Respiratory: Reports: no symptoms. Gastrointestinal: Reports: abdominal pain, diarrhea. Genitourinary: Reports: no symptoms. Musculoskeletal: Reports: no symptoms. Objective Last 24 Hrs of Vital Signs/I&O Vital Signs Date Time Temp Pulse Resp B/P B/P Pulse O2 O2 Flow FiO2 Mean Ox Delivery Rate 12/16 0711 100.0 102 20 140/78 95 12/16 0707 100.5 12/15 2317 98.8 80 138/82 12/15 2210 99.0 67 18 144/77 98 Room Air 12/15 1831 101.2 12/15 1452 98.4 80 20 160/90 96 Room Air 12/15 1231 100.5 12/15 1136 101.0 Intake & Output 12/16 1600 12/16 0800 12/16 0000 Intake Total 400 800 Output Total 750 Balance 400 50 Intake, Oral 400 800 Number 1 Bowel Movements Output, Urine 750 Patient 109.769 kg Weight Physical Exam General Appearance: Alert, Oriented X3, Cooperative, No Acute Distress HEENT: Atraumatic, PERRLA, EOMI Cardiovascular: Regular Rate, Normal S1, Normal S2 Lungs: Clear to Auscultation, Normal Air Movement, non-tender; Abdomen: Soft, incision healing well Extremities: edema much improved. still 2+ Current Medications: Current Medications Sig/Ni Start time Last Medication Dose Route Stop Time Status Admin Acetaminophen 650 MG Q6P PRN 12/15 1130 AC 12/16 PO 0707 Acetaminophen 1,000 MG Q6P PRN 12/14 1530 DC 12/14 N/A 1 UNIT IV 2020 Ampicillin Sodium/ 3,000 MG Q6 12/14 1800 AC 12/16 Sulbactam Sodium IV 0619 Sodium Chloride 100 ML Enoxaparin Sodium 40 MG DAILY 12/15 0900 AC 12/15 SC 1020 Labetalol HCl 100 MG BID 12/15 2100 AC PO Lactobacillus 1 CAP DAILY 12/16 09 DC Acidophilus PO Lactobacillus 1 CAP BID 12/15 2200 AC 12/15 Acidophilus PO 2316 Ondansetron HCl 4 MG Q6P PRN 12/14 1415 AC IV Patient Medication 1 ED ONE ONE 12/15 181 [place] Teaching ED 12/15 181 Potassium Chloride 20 MEQ Q1 12/15 1100 DC 12/15 PO 12/15 1201 1136 Last 24 Hrs of Lab/[place] Results Last 24 Hrs of Labs/Mics: Laboratory Tests 12/16/17 0653: Anion Gap 9, Estimated GFR > 60, BUN/Creatinine Ratio 13.3, CBC w Diff NO MAN DIFF REQ, RBC 3.01 L, MCV 88.1, MCH 29.8, MCHC 33.8, RDW 14.6 H, MPV 7.7, Gran % 80.9 H, Lymphocytes % 9.5 L, Monocytes % 8.0, Eosinophils % 1.2, Basophils % 0.4, Absolute Granulocytes 10.0 H, Absolute Lymphocytes 1.2, Absolute Monocytes 1.0 H, Absolute Eosinophils 0.1, Absolute Basophils 0 12/15/172128: Potassium Cancelled 12/15/170: Lactic Acid 0.7, Magnesium 1.9, CBC w Diff NO MAN DIFF REQ, RBC 2.91 L, MCV 87.5, MCH 30.1, MCHC 34.4, RDW 14.2, MPV 7.3 L, Gran % 78.4 H, Lymphocytes % 10.7 L, Monocytes % 9.8 H, Eosinophils % 0.9, Basophils % 0.2, Absolute Granulocytes 10.5 H, Absolute Lymphocytes 1.4, Absolute Monocytes 1.3 H, Absolute Eosinophils 0.1, Absolute Basophils 0 12/15/17 1100: Potassium Cancelled Microbiology 12/15 2210 STOOL: Clostridium difficile Toxin A & B - RES 12/15 2210 STOOL: Stool Culture - RES Assessment/Plan Assessment: This is a 22 yo F. , s/p C/S for arrest of dilation on 12/09/2017 with subsequent post- fever and leukocytosis for who comes in for CC SOB and fever. Upon admission given, fever, tachycardia, leukocytosis there is concern for sepsis. The DDX for source of infection in this patient includes PNA ( aspiration vs. CAP vs. Healthcare associated) and endometritis, given that she had chorioamnionitis on pathology, meconium staining, and a C/S. Her SOFA score is 1. --------- PLAN: Sepsis 2/ PNA vs Endometritis: Continues on Unasyn; Tmax last night was 101.2 at 18:30; this AM had a temp of 100.5. Her fever curve seems to be improving but if she is febrile persistently we will either have to broaden the differential ( to include septic pelvic vein thrombophlebitis per OB note) or broaden the antibiotics. * Monitor BCX-NGTD * Monitor UCX-NGTD * Monitor Sputum CX-cancelled * Appreciate ID recs * Continue Unasyn at this time * Monitor on telemetry * Appreciate MOTORCYCLE DELIVERY DRIVER recs HTN: Yesterday she had BP max of 160s systolic. She was started on Labetalol 100mg BID by the night team. She is not breast feeding. Per OB no indication for Mag but goals are to keep BP under 150/100. * Con't Labetalol 100mg BID Diarrhea: ??2/2 Unasyn * F/U C.diff * Stool cx Hepato-splenomegaly: Unsure of etiology. Con't monitor. By CT her spleen measured about 15x15. * Con't monitor * F/u outpt SOB: RESOLVED. CT with c/o bilat LL consolidation. Negative for PE. Notably her Dimer is 4098 and BNP 868. US WNL and EF 65-70%. She is satting well on RA. CTAB. * Abx as above * CX as above Hypokalemia: Replete. Likely also due to Lasix administration in ED. * Monitor BEP * Check mag Anemia: Stable since C/S. * Monitor H/H Hypo-albuminemia: Her protein/cr ratio is elevated but she doesn't have other RF such as htn to suggest pre-eclampsia. Pyuria: Though UA has LE, 15-25 WBC and some abad, pt has no symptoms. UTI is lower on the differential as cause of her sepsis. However, the abx given above would cover for most urinary pathogens. * Monitor for urinary symptoms * ABX as above HHD FC CHem dvt ppx Problem List: 1. Pulmonary edema 2. pain Pain Ratin Pain Location: none Pain Goal: Remain pain free Pain Plan: none Tomorrow's Labs & Rationales: cbc bep Rudy Millard MD 12/16/17 1148: Attending MD Review Statement Attending Statement Attending MD Statement: examined this patient, discuss w/resident/PA/CONSTRUCTION IRONWORKER HELPER, agreed w/resident/PA/CONSTRUCTION IRONWORKER HELPER, reviewed EMR data (avail) Attending Assessment/Plan: 22F s/p on 12/09/2017 presenting with progressive shortness of breath, dyspnea on exertion, and orthopnea since being discharged on 12/12. She is also febrile 102.7 with normal BP and HR. She feels overall swollen and her legs are edematous. She has a mild frothy cough. Had been treated with Cephalexin for presumed cellulitis as an outpatient. Of note, patient was never septic. Feels better today. Leg edema is vastly improved, as is breathing. She spiked 101.2 overnight. Cultures negative. Placental pathology shows chorioamnionitis with meconium staining. 1. Anasarca 2. Endometritis Plan - Continue to telemetry - Echocardiogram shows EF 65% without valvular disease - Labetalol if BP is elevated - I/O, daily weights - Continue Unasyn - Follow cultures - ID and obsetrics consult - DVT PPx
[2017-12-16 07:11] VITALS: BP 140/78
--- NOTE | 2017-12-16 08:31 | PN- OBGYN ---
Surgical Brief Attending Note Brief Attending Note: Seen and evaluated. Reviewed findings with data warehouse administrator last evening. Loose stools noted BP was elevated Family had concerns of findings. She states she feels better this am. Denies headaches nor visual changes. Denies pain in chest and abdomen. Denies drainage from wound T100 and Tmax from admission 102.7 and from 12/15/17 was 101.2 and now 100.5 BP 140/78 Pulse 100 Lungs clear Abdomen soft and fundus nontender. Wound intact and swelling has decreased and no erythema nor tenderness. No drainage appreciated Extremity. Left arm with edema Right arm wnl. Lower extremities with 1+ edema. Meds. Unasyn D#3, Probiotics, Motrin, Tylenol Weight 229 from 12/15/18. Last weight from predelivery was 234. WBC 13.4 and increase from 12.7 Hct 25.5 and platelets 276. HD#2 and POD #8 for this patient with fever and fluid overload. Presumed endometritis at present. ID. Fever curve is declining since admission. No focal physical exam findings and wound is showing signs of improvement. WBC slight increase. Cultures negative to date. If fever spike again than will change antibiotics. No findigns of TTP at present. Cdiff sent as with diarrhea. Started on probiotics to reduce antibiotic associated diarrhea. A consideration is to reassess for septic pelvic vein thrombophlebitis. This can lead to prolonged fevers and usually seen in the right ovarian vein in the setting. Regardless antibiotics and lovenox will aid in resolution with same. Heme. Start on iron and vitamin c and folic acid to correct anemia. Stable level otherwise Cardiac. Started on beta artem due to severe range bp in the setting. She is at risk given first and young age. No indication for magnesium but goals are to keep BP below 150/100. Echo was normal and no peripartum cardiomyopathy. Respiratory. Lungs clear and she is without dyspnea. S/p lasix. VTE prophylaxis. Continue on lovenox daily. GI. Tolerating diet. Follow up cdiff cultures. Renal. Creatinine wnl. Daily weights and replete potassium as needed. Social. Patient is . Obviously missing her . Goals for contact with and family reviewed. Whether by facetime or short visits of to mother to allow for bonding. Treatment plan reviewed with patient and family.
[2017-12-16 08:36] LABS: ABSOLUTE BASOPHIL COUNT 0 /CUMM (0.0-0.2); ABSOLUTE EOSINOPHIL COUNT 0.1 /CUMM (0.0-0.7); ABSOLUTE LYMPH COUNT 1.2 /CUMM (1.2-3.4); BASOPHIL % 0.4 % (0.0-2.0); EOSINOPHIL % 1.2 % (0-5); GRANULOCYTE % 80.9 % (42.2-75.2); HEMATOCRIT 26.5 % (37-47); MEAN CORPUSCULAR HGB 29.8 PG (27.0-31.0); MEAN CORPUSCULAR HGB CONC 33.8 G/DL (33.0-37.0); MEAN CORPUSCULAR VOLUME 88.1 FL (81.0-99.0); MEAN PLATELET VOLUME 7.7 FL (7.4-10.4); PLATELET COUNT 292 /CUMM (130-400); RBC DISTRIBUTION WIDTH 14.6 % (11.5-14.5); RED BLOOD CELL CT 3.01 /CUMM (4.20-5.40); WHITE BLOOD CELL COUNT 12.4 /CUMM (4.8-10.8)
--- NOTE | 2017-12-16 12:18 | Patient Discharge Instructions ---
Discharge Instructions General Discharge Information You were seen/treated for: 1. Post- fever 2. Hypertension You had these procedures: antibiotic administration Watch for these problems: 1. Fever 2. Shortness of breath 3. Headache 4. Nausea and vomiting Special Instructions: 1. Please follow up with your SEAFOOD MANAGER in one week 2. Please follow up with your PCP in one week Diet Continue normal diet: Yes Activity Activity Self Limited: Yes Acute Coronary Syndrome Inclusion Criteria At DC or during hospital stay patient has or had the following: ACS DIAGNOSIS No Discharge Core Measures Meds if any: Prescribed or Continued at Discharge Meds if any: NOT Prescribed or Continued at Discharge Congestive Heart Failure Inclusion Criteria At DC or during hospital stay patient has or had the following: CHF DIAGNOSIS No Discharge Core Measures Meds if any: Prescribed or Continued at Discharge Meds if any: NOT Prescribed or Continued at Discharge Cerebrovascular accident Inclusion Criteria At DC or during hospital stay patient has or had the following: CVA/TIA Diagnosis No Discharge Core Measures Meds if any: Prescribed or Continued at Discharge Meds if any: NOT Prescribed or Continued at Discharge Venous thromboembolism Inclusion Criteria VTE Diagnosis No VTE Type NONE VTE Confirmed by (Test) NONE Discharge Core Measures - Per Current guidelines, there needs to be overlap - treatment for the first 5 days of Warfarin therapy. - If discharged on Warfarin prior to 5 days of - overlap therapy, the patient will need to be - assessed for post discharge needs including - *Post discharge parental anticoagulation - *Warfarin and/or parental anticoagulation education - *Follow up date to check INR post discharge At least 5 days overlap therapy as Inpatient No Meds if any: Prescribed or Continued at Discharge Note: Overlap Therapy is Warfarin and Anticoagulant Meds if any: NOT Prescribed or Continued at Discharge
[2017-12-16 14:55] VITALS: BP 140/84
[2017-12-16 22:47] VITALS: BP 130/80
--- NOTE | 2017-12-16 23:16 | Transfer of Care Summary ---
Hospital Course Course Hospital Course: This is a 22 yo F. , s/p C/S for arrest of dilation on 12/09/2017 with subsequent post- fever and leukocytosis who comes in for CC SOB and fever. After delivery of infant on 12/09 she remained in the hospital for fever and was d/c about 3 days later on PO Keflex. She remained febrile while at home, but when she developed SOB she came to ED. Upon admission given, fever, tachycardia, leukocytosis there was concern for sepsis. The DDX for source of infection in this patient initially included PNA ( given that her CC was SOB and CT suggested consolidation) and endometritis, given that she had chorioamnionitis on pathology upon delivery, meconium staining, and a C/S. Initially, her SOFA score was 1. On evening of day 2 of admission however, pt c/o diarrhea and a C.diff was sent which returned positive. Current working theory is that source of infection is the C. diff. Her stay has been complicated by post htn up to 160s systolic. --- PLAN: Sepsis 2/2 C.diff: She started on Unasyn in hospital to treat as mentioned above but on 12/16 her C.diff was + so we switched to PO vanco. My only other concern is that she might have acquired the C.diff from the antibiotics she received when she was febrile post-, but I am not sure if we are covering for the original cause of fever. * Monitor BCX-NGTD * Monitor UCX-NGTD * Monitor Sputum CX-cancelled * Appreciate ID recs * On PO vanco * Monitor on telemetry * Appreciate DOPE HOUSE OPERATOR HELPER recs * Please f/u with ID regarding any contact precautions for her new born at home. HTN: On 12/15 she had BP max of 160s systolic. Urine protein/Cr ratio +. She was started on Labetalol 100mg BID by the night team. She is not breast feeding. Per OB no indication for Mag but goals are to keep BP under 150/100. * Con't Labetalol 100mg BID * Per OB no need for Mag at this time. Hepato-splenomegaly: Unsure of etiology. Con't monitor. By CT her spleen measured about 15x15. * Con't monitor * F/u outpt SOB: RESOLVED. CT with c/o bilat LL consolidation. Negative for PE. Notably her Dimer is 4098 and BNP 868. US WNL and EF 65-70%. She is satting well on RA. CTAB. * Abx as above * CX as above Hypokalemia: Replete. Likely also due to Lasix administration in ED. * Monitor BEP * Check mag Anemia: Stable since C/S. * Monitor H/H Hypo-albuminemia: * F/U out pt Pyuria: Though UA has LE, 15-25 WBC and some abad, pt has no symptoms. UTI is lower on the differential as cause of her sepsis. However, the abx given above would cover for most urinary pathogens. * Monitor for urinary symptoms * ABX as above HHD FC CHem dvt ppx Assessment/Plan: see above
[2017-12-17 06:36] VITALS: BP 146/60
--- NOTE | 2017-12-17 07:24 | PN- Housestaff ---
Santino HENAO,Autumn 12/17/17 0724: Subjective Follow-up For: C. difficile colitis Complaints: no complaints Subjective: Patient seen and examined at bedside. No overnight events. Patient is in no acute distress. Denies abdominal pain, nausea, vomiting. Patient had 5 episodes of loose watery diarrhea for the past 24 hours. With no blood. Review of Systems Constitutional: Reports: no symptoms. Objective Last 24 Hrs of Vital Signs/I&O Vital Signs Date Time Temp Pulse Resp B/P B/P Pulse O2 O2 Flow FiO2 Mean Ox Delivery Rate 12/17 1441 98.6 97 16 121/69 96 Room Air 12/17 0926 99.0 12/17 0922 93 130/70 12/17 0639 101.3 12/17 0636 101.3 90 20 146/60 93 Room Air 12/16 2307 100.1 78 130/80 12/16 2247 99.5 83 20 130/80 98 Room Air 12/16 1924 100.1 12/16 1718 101.0 Intake & Output 12/17 1600 12/17 0800 12/17 0000 Intake Total 600 220 440 Output Total 480 Balance 120 220 440 Intake, Oral 600 220 440 Number 3 2 3 Bowel Movements Output, Urine 480 Patient 235 lb Weight Weight Bed scale Measurement Method Physical Exam General Appearance: Alert, Oriented X3, Cooperative, No Acute Distress Cardiovascular: Regular Rate, Normal S1, Normal S2, No Murmurs Lungs: Clear to Auscultation Abdomen: Soft, No Tenderness, No Hepatospenomegaly Neurological: Strength at 5/5 X4 Ext, Normal Tone, Sensation Intact Current Medications: Current Medications Sig/Ni Start time Last Medication Dose Route Stop Time Status Admin Acetaminophen 650 MG Q6P PRN 12/15 1130 AC 12/17 PO 0639 Enoxaparin Sodium 40 MG DAILY 12/15 0900 AC 12/17 SC 0926 Labetalol HCl 100 MG BID 12/15 2100 AC PO Lactobacillus 1 CAP BID 12/15 2200 AC 12/17 Acidophilus PO 0917 Ondansetron HCl 4 MG Q6P PRN 12/14 1415 AC IV Vancomycin HCl 125 MG Q6 12/16 1422 AC 12/17 PO 1221 Last 24 Hrs of Lab/[place] Results Last 24 Hrs of Labs/Mics: Laboratory Tests 12/17/17 0646: Anion Gap 10, Estimated GFR > 60, BUN/Creatinine Ratio 13.3, CBC w Diff NO MAN DIFF REQ, RBC 2.99 L, MCV 87.8, MCH 29.8, MCHC 34.0, RDW 14.1, MPV 7.8, Gran % 80.9 H, Lymphocytes % 9.6 L, Monocytes % 8.0, Eosinophils % 1.3, Basophils % 0.2, Absolute Granulocytes 11.2 H, Absolute Lymphocytes 1.3, Absolute Monocytes 1.1 H, Absolute Eosinophils 0.2, Absolute Basophils 0 Assessment/Plan Assessment: This is a 22 yo F. , s/p C/S for arrest of dilation on 12/09/2017 with subsequent post- fever and leukocytosis for who comes in for CC SOB and fever. Upon admission given, fever, tachycardia, leukocytosis there is concern for sepsis. The DDX for source of infection in this patient includes PNA ( aspiration vs. CAP vs. Healthcare associated) and endometritis, given that she had chorioamnionitis on pathology, meconium staining, and a C/S. Her SOFA score is 1. PLAN: Sepsis 2/2 PNA vs Endometritis: Patient was on Unasyn which was discontinued yesterday. Patient has persistent fever which can be secondary due to C. difficile colitis. * Monitor BCX-NGTD * Monitor UCX-NGTD * Monitor Sputum CX-cancelled * Appreciate ID recs * Monitor on telemetry * Appreciate MANAGER TRANSPLANT recs HTN: Yesterday she had BP max of 160s systolic. She was started on Labetalol 100mg BID by the night team. She is not breast feeding. Per OB no indication for Mag but goals are to keep BP under 150/100. * Con't Labetalol 100mg BID Diarrhea: * C.diff colitis-patient was started on 125 of by mouth vancomycin. * Stool cx Hepato-splenomegaly: Unsure of etiology. Con't monitor. By CT her spleen measured about 15x15. * Con't monitor * F/u outpt SOB: RESOLVED. CT with c/o bilat LL consolidation. Negative for PE. Notably her Dimer is 4098 and BNP 868. US WNL and EF 65-70%. She is satting well on RA. CTAB. * Abx as above * CX as above Hypokalemia: Replete. Likely also due to Lasix administration in ED. * Monitor BEP * Check mag Anemia: Stable since C/S. * Monitor H/H Hypo-albuminemia: Her protein/cr ratio is elevated but she doesn't have other RF such as htn to suggest pre-eclampsia. Pyuria: Though UA has LE, 15-25 WBC and some abad, pt has no symptoms. UTI is lower on the differential as cause of her sepsis. However, the abx given above would cover for most urinary pathogens. * Monitor for urinary symptoms * ABX as above Plan-for discharge tomorrow. Problem List: 1. C. difficile colitis Pain Ratin Pain Location: NONE Pain Goal: Remain pain free Pain Plan: TYLENOL Tomorrow's Labs & Rationales: CBC,BEP Rudy Millard MD 12/17/17 1446: Attending MD Review Statement Attending Statement Attending MD Statement: examined this patient, discuss w/resident/PA/ADMINISTRATIVE ASSISTANT COORDINATOR, agreed w/resident/PA/ADMINISTRATIVE ASSISTANT COORDINATOR, reviewed EMR data (avail) Attending Assessment/Plan: 22F s/p on 12/09/2017 presenting with progressive shortness of breath, dyspnea on exertion, and orthopnea since being discharged on 12/12. She is also febrile 102.7 with normal BP and HR. She feels overall swollen and her legs are edematous. She has a mild frothy cough. Had been treated with Cephalexin for presumed cellulitis as an outpatient. Of note, patient was never septic. Feels better today. Leg edema is vastly improved, as is breathing. She spiked 101.4 overnight. Cultures negative. Placental pathology shows chorioamnionitis with meconium staining. C.diff positive and Vanco started yesterday. 1. Anasarca 2. Endometritis 3. C.difficile colitis Plan - Continue to telemetry - Echocardiogram shows EF 65% without valvular disease - Labetalol if BP is elevated - I/O, daily weights - Unasyn stopped - Continue Vancomycin - Follow cultures - ID and obsetrics consult - DVT PPx - Anticipated discharge tomorrow
[2017-12-17 08:22] LABS: ABSOLUTE BASOPHIL COUNT 0 /CUMM (0.0-0.2); ABSOLUTE EOSINOPHIL COUNT 0.2 /CUMM (0.0-0.7); ABSOLUTE GRANULOCYTE CT 11.2 /CUMM (1.4-6.5); ABSOLUTE LYMPH COUNT 1.3 /CUMM (1.2-3.4); ABSOLUTE MONOCYTE COUNT 1.1 /CUMM (0.10-0.60); BASOPHIL % 0.2 % (0.0-2.0); EOSINOPHIL % 1.3 % (0-5); GRANULOCYTE % 80.9 % (42.2-75.2); HEMATOCRIT 26.3 % (37-47); MEAN CORPUSCULAR HGB 29.8 PG (27.0-31.0); MEAN CORPUSCULAR VOLUME 87.8 FL (81.0-99.0); MEAN PLATELET VOLUME 7.8 FL (7.4-10.4); PLATELET COUNT 295 /CUMM (130-400); RBC DISTRIBUTION WIDTH 14.1 % (11.5-14.5); RED BLOOD CELL CT 2.99 /CUMM (4.20-5.40); WHITE BLOOD CELL COUNT 13.8 /CUMM (4.8-10.8)
--- NOTE | 2017-12-17 09:58 | PN- OBGYN ---
Surgical Brief Attending Note Brief Attending Note: Seen and evaluated Feeling better and diarrhea is lessening Denies abdominal pain Tmax 101.3 T 99 BP 130/70 P80s Weight 229 Lungs clear Abdomen soft and wound intact. Fundus nontender Extremity. 1+ edema and no skin breakdown Meds. Vancomycin oral WBC 13.8 and hct 26.3 HD#3 and POD#9 s/p LTCS for arrest of dilation and course complicated by fever and presumed endometritis but now with Cdiff. Also noted with fluid overload which resolved and hypertension which is controlled on medication. ID. WBC increasing and still with fever however cultures showing Cdiff. Off of Unasyn at present and no other focal source. Appreciate ID input for length of treatment for same. Cardiac. Stable BP on labetalol. If any side effects noted ie fatigue than may change to DEANN inhibitor. VTE prophylaxis wtih lovenox Heme. Start on iron and vitamin c and folic acid for nutritional support. Social. Patient with good family support. No findings of blues nor depression.
--- NOTE | 2017-12-17 10:59 | PN- Infect Dx ---
Subjective Subjective: T-max 101.3. She feels well with no complaints. She did have several loose stools overnight but none so far this morning. She denies any nausea, vomiting or abdominal pain. She has had no further shortness of breath and she denies any dysuria. Objective Last 24 Hrs of Vital Signs/I&O Vital Signs Date Time Temp Pulse Resp B/P B/P Pulse O2 O2 Flow FiO2 Mean Ox Delivery Rate 12/17 0926 99.0 12/17 0922 93 130/70 12/17 0639 101.3 12/17 0636 101.3 90 20 146/60 93 Room Air 12/16 2307 100.1 78 130/80 12/16 2247 99.5 83 20 130/80 98 Room Air 12/16 1924 100.1 12/16 1718 101.0 12/16 1455 98.1 90 20 140/84 96 Room Air 12/16 1253 84 140/84 Intake & Output 12/17 1600 12/17 0800 12/17 0000 Intake Total 220 440 Output Total Balance 220 440 Intake, Oral 220 440 Number 2 3 Bowel Movements Patient 235 lb Weight Weight Bed scale Measurement Method Physical Exam Other Physical Findings: She appears comfortable in no acute distress Lungs are clear Heart regular rhythm with no murmur Abdomen is soft, nontender with positive bowel sounds; lower abdominal incision with mild serosanguineous drainage, with no erythema or tenderness Extremities no cyanosis, clubbing or edema Results Last 24 Hours of Lab Results: Laboratory Tests 12/17 0646 Chemistry Sodium (137 - 145 mmol/L) 139 Potassium (3.5 - 5.1 mmol/L) 3.6 Chloride (98 - 107 mmol/L) 107 Carbon Dioxide (22 - 30 mmol/L) 22 Anion Gap (5 - 16) 10 BUN (7 - 17 mg/dL) 8 Creatinine (0.5 - 1.0 mg/dL) 0.6 Estimated GFR (>60 ml/min) > 60 BUN/Creatinine Ratio (7 - 25 %) 13.3 Hematology CBC w Diff NO MAN DIFF REQ WBC (4.8 - 10.8 /CUMM) 13.8 H RBC (4.20 - 5.40 /CUMM) 2.99 L Hgb (12.0 - 16.0 G/DL) 8.9 L Hct (37 - 47 %) 26.3 L MCV (81.0 - 99.0 FL) 87.8 MCH (27.0 - 31.0 PG) 29.8 MCHC (33.0 - 37.0 G/DL) 34.0 RDW (11.5 - 14.5 %) 14.1 Plt Count (130 - 400 /CUMM) 295 MPV (7.4 - 10.4 FL) 7.8 Gran % (42.2 - 75.2 %) 80.9 H Lymphocytes % (20.5 - 51.1 %) 9.6 L Monocytes % (1.7 - 9.3 %) 8.0 Eosinophils % (0 - 5 %) 1.3 Basophils % (0.0 - 2.0 %) 0.2 Absolute Granulocytes (1.4 - 6.5 /CUMM) 11.2 H Absolute Lymphocytes (1.2 - 3.4 /CUMM) 1.3 Absolute Monocytes (0.10 - 0.60 /CUMM) 1.1 H Absolute Eosinophils (0.0 - 0.7 /CUMM) 0.2 Absolute Basophils (0.0 - 0.2 /CUMM) 0 Last 24 Hours of [place] Results: Stool C. difficile December 15 positive Urine culture December 14 negative Blood cultures 2 December 14 negative Assessment/Plan ID Impression: Persistent fevers, with her white blood cell count increased today, possibly secondary to C. difficile, for which she is now on p.o. Vancomycin, with no diarrhea reported so far today. Her initial fevers may still have been secondary to endometritis but, given the C. difficile, it seems prudent that she be followed off antibiotics at this time. Have discussed this with Dr. Kamara who concurs. Suggestion: 1. Continue po Vancomycin
[2017-12-17 14:41] VITALS: BP 121/69
--- NOTE | 2017-12-17 16:21 | Discharge Summary ---
Visit Information Visit Dates Admission Date: 12/14/17 Discharge Date: 12/18/17 Hospital Course Course Attending Physician: Rudy Millard MD Primary Care Physician: Guy HENAO,Binh Acosta Hospital Course: This is a 22 yo F. , s/p C/S for arrest of dilation on 12/09/2017 with subsequent post- fever and leukocytosis who comes in for CC SOB and fever. After delivery of on 12/09 she remained in the hospital for fever and was d/c about 3 days later on PO Keflex. She remained febrile while at home, but when she developed SOB she came to ED. Upon admission given, fever, tachycardia, leukocytosis there was concern for sepsis. The DDX for source of infection in this patient initially included PNA ( given that her CC was SOB and CT suggested consolidation) and endometritis, given that she had chorioamnionitis on pathology upon delivery, meconium staining, and a C/S. Initially, her SOFA score was 1. On evening of day 2 of admission however, pt c/o diarrhea and a C.diff was sent which returned positive. --- PLAN: Sepsis 2/2 C.diff: She started on Unasyn in hospital for possible endometritis but given her stool positive for C. difficile this was discontinued and she was switched to by mouth Vanco and sent home to complete a total of 10 days of vancomycin. Patient was afebrile upon discharge. HTN: On 12/15 she had BP max of 160s systolic. Urine protein/Cr ratio +. She was started on Labetalol 100mg BID. She is not breast feeding. Patient will go home with labetalol 100 twice a day and follow up with Dr. Kamara as outpatient. Hepato-splenomegaly: Unsure of etiology. Patient will follow up with her primary care physician. SOB: RESOLVED. CT with c/o bilat LL consolidation. Negative for PE. Notably her Dimer is 4098 and BNP 868. US WNL and EF 65-70%. She is satting well on RA. Hypokalemia: Replete. Likely also due to Lasix administration in ED. * Monitor BEP * Check mag Anemia: Stable H&H Allergies: Coded Allergies: NO KNOWN ALLERGIES (NONE 12/14/17) Significant Procedures: CTA No evidence of pulmonary embolism. - Anasarca with interstitial pulmonary edema and small pleural effusions. - Consolidation, suspicious for pneumonia, in each lower lobe. - Hepatosplenomegaly without focal hepatic or splenic lesions. - Large uterus. - Trace amount of free fluid/ascites in the abdomen and pelvis and mesenteric edema of the lower abdomen in this patient. No abscess. - The appendix is not definitively seen. Clinical follow-up recommended if patient has any periumbilical or right lower quadrant pain. CT ABD&PELVIS No evidence of pulmonary embolism. - Anasarca with interstitial pulmonary edema and small pleural effusions. - Consolidation, suspicious for pneumonia, in each lower lobe. - Hepatosplenomegaly without focal hepatic or splenic lesions. - Large uterus. - Trace amount of free fluid/ascites in the abdomen and pelvis and mesenteric edema of the lower abdomen in this patient. No abscess. - The appendix is not definitively seen. Clinical follow-up recommended if patient has any periumbilical or right lower quadrant pain. Disposition Summary Disposition Principal Diagnosis: C .DIFF COLITIS Additional Diagnosis: ENDOMETRITIS Discharge Disposition: home or self care Discharge Instructions General Discharge Information Code Status: Full Code Patient's Diet: REGULAR DIET Patient's Activity: TOLERATED Follow-Up Instructions/Appts: F/U OBGYN,PCP IN1-2 WEEKS Medications at Discharge Discharge Medications: Stop taking the following medications: Oxycodone HCl (Oxycodone HCl) 5 MG TABLET ORAL EVERY SIX HOURS NEEDED as needed for PAIN SCALE 7-10 (SEVERE) Qty = 30 Cephalexin (Cephalexin) 500 MG CAPSULE ORAL EVERY SIX HOURS Qty = 28 Continue taking these medications: Vit No.129/Iron/FA ( One Daily Tablet) 27 MG IRON-800 MCG TABLET 1 Tablet ORAL DAILY Comments: NOT GIVEN IN HOSPITAL Ibuprofen (Ibuprofen) 600 MG TABLET 600 Milligram ORAL EVERY SIX HOURS NEEDED as needed for UTERINE CRAMPING Qty = 30 Comments: Last Taken:12/12/17 Time:0759 Ferrous Sulfate (Ferrous Sulfate) 325 MG (65 MG IRON) TABLET. 325 Milligram ORAL AT BEDTIME Qty = 90 Comments: NOT GIVEN IN HOSPITAL Start taking the following new medications: Vancomycin HCl (Vancomycin HCl) 900 MCG/MG (NOT LESS THAN, FDC) POWDER 125 Milligram ORAL EVERY SIX HOURS Qty = 30 No Refills Comments: Last Taken: 12/18/17 Time: 0643 Lactobac Cmb #3/Fos/Pantethine (Probiotic & Acidophilus Cap) 300MM-250 CAPSULE 1 Capsule ORAL TWICE DAILY Qty = 14 No Refills Instructions: . Comments: Last Taken: 12/18/17 Time: 0830 Copies To: Asad HENAO,Edward Carranza MD Review Statement Documenting Attending: Guy HENAO,Binh Acosta
[2017-12-18 06:30] VITALS: BP 118/74
--- NOTE | 2017-12-18 07:13 | PN- Housestaff ---
Santino HENAO,Autumn 12/18/17 0712: Subjective Follow-up For: C. difficile colitis Complaints: no complaints Subjective: Patient seen and examined at bedside. No overnight events. Patient denies nausea, vomiting, abdominal pain, diarrhea. Patient had 3-4 episodes of bowel movements which was formed. She is eager to go home today. Review of Systems Constitutional: Reports: no symptoms. Objective Last 24 Hrs of Vital Signs/I&O Vital Signs Date Time Temp Pulse Resp B/P B/P Pulse O2 O2 Flow FiO2 Mean Ox Delivery Rate 12/18 0831 68 122/72 12/18 0630 99.4 76 16 118/74 96 12/17 2199 99.5 95 16 96 12/18 2023 130/80 Intake & Output 12/18 1600 12/18 0800 12/18 0000 Intake Total 150 100 Output Total Balance 150 100 Intake, Oral 150 100 Number 1 Bowel Movements Physical Exam General Appearance: Alert, Oriented X3, Cooperative, No Acute Distress Cardiovascular: Regular Rate, Normal S1, Normal S2, No Murmurs Lungs: Normal Air Movement Abdomen: Soft, No Tenderness, No Hepatospenomegaly, C- SECTION WOUND INTACT. NO DISCVHARGE Extremities: MILD PEDAL EDEMA Current Medications: Current Medications Sig/Ni Start time Last Medication Dose Route Stop Time Status Admin Acetaminophen 650 MG Q6P PRN 12/15 1130 DCD 12/17 PO 0639 Enoxaparin Sodium 40 MG DAILY 12/15 0900 DCD 12/18 SC 0830 Labetalol HCl 100 MG BID 12/15 2100 DCD PO Lactobacillus 1 CAP BID 12/15 2200 DCD 12/18 Acidophilus PO 0830 Ondansetron HCl 4 MG Q6P PRN 12/14 1415 DCD IV Vancomycin HCl 125 MG Q6 12/16 1422 DCD 12/18 PO 0643 Last 24 Hrs of Lab/[place] Results Last 24 Hrs of Labs/Mics: Laboratory Tests 12/18/17 0638: CBC w Diff NO MAN DIFF REQ, RBC 3.14 L, MCV 88.6, MCH 29.6, MCHC 33.4, RDW 14.1 , MPV 8.0, Gran % 76.2 H, Lymphocytes % 13.3 L, Monocytes % 8.0, Eosinophils % 2.2, Basophils % 0.3, Absolute Granulocytes 9.6 H, Absolute Lymphocytes 1.7, Absolute Monocytes 1.0 H, Absolute Eosinophils 0.3, Absolute Basophils 0 Assessment/Plan Assessment: This is a 22 yo F. , s/p C/S for arrest of dilation on 12/09/2017 with subsequent post- fever and leukocytosis for who comes in for CC SOB and fever. Upon admission given, fever, tachycardia, leukocytosis there is concern for sepsis. The DDX for source of infection in this patient includes PNA ( aspiration vs. CAP vs. Healthcare associated) and endometritis, given that she had chorioamnionitis on pathology, meconium staining, and a C/S. Her SOFA score is 1. PLAN: Sepsis 2/2 PNA vs Endometritis: Patient was on Unasyn which was discontinued yesterday. Patient had no fevers for the past 24 hours. 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 She will go home with the same dose and follow-up with Dr. Kamara as outpatient. Diarrhea: * C.diff colitis-patient was started on 125 of by mouth vancomycin. Patient will continue vancomycin for 5 more days for a total of 10 days of antibiotics. * Stool cx Hepato-splenomegaly: Unsure of etiology. Con't monitor. By CT her spleen measured about 15x15. * Con't monitor * F/u outpt SOB: RESOLVED. CT with c/o bilat LL consolidation. Negative for PE. Notably her Dimer is 4098 and BNP 868. US WNL and EF 65-70%. She is satting well on RA. CTAB. * Abx as above * CX as above Hypokalemia: Replete. Likely also due to Lasix administration in ED. * Monitor BEP * Check mag Anemia: Stable since C/S. * Monitor H/H Hypo-albuminemia: Her protein/cr ratio is elevated but she doesn't have other RF such as htn to suggest pre-eclampsia. Pyuria: Though UA has LE, 15-25 WBC and some abad, pt has no symptoms. UTI is lower on the differential as cause of her sepsis. However, the abx given above would cover for most urinary pathogens. * Monitor for urinary symptoms * ABX as above Problem List: 1. C. difficile colitis Pain Ratin Pain Location: NONE Pain Goal: Remain pain free Pain Plan: NONE Tomorrow's Labs & Rationales: NONE Freeman HENAOTezbernardo 12/18/17 1245: Attending MD Review Statement Attending Statement Attending MD Statement: examined this patient, discuss w/resident/PA/PROFESSIONAL APPLICATION DESIGNER, agreed w/resident/PA/PROFESSIONAL APPLICATION DESIGNER, reviewed EMR data (avail) Attending Assessment/Plan: 22F s/p on 12/09/2017 presenting with progressive shortness of breath, dyspnea on exertion, and orthopnea since being discharged on 12/12. She is also febrile 102.7 with normal BP and HR. She feels overall swollen and her legs are edematous. She has a mild frothy cough. Had been treated with Cephalexin for presumed cellulitis as an outpatient. Of note, patient was never septic. Much better today. Tmax 99 overnight. Having more formed stool today, no abdominal pain, WBC slightly improved, no further evidence of fluid overload. 1. Anasarca 2. Endometritis 3. C.difficile colitis Plan - Stable for discharge - Vancomycin for 10 day total course - Echocardiogram shows EF 65% without valvular disease - No anti-hypertensives required - Outpatient obstetrics follow up
[2017-12-18 08:01] LABS: ABSOLUTE BASOPHIL COUNT 0 /CUMM (0.0-0.2); ABSOLUTE EOSINOPHIL COUNT 0.3 /CUMM (0.0-0.7); ABSOLUTE GRANULOCYTE CT 9.6 /CUMM (1.4-6.5); ABSOLUTE LYMPH COUNT 1.7 /CUMM (1.2-3.4); BASOPHIL % 0.3 % (0.0-2.0); EOSINOPHIL % 2.2 % (0-5); GRANULOCYTE % 76.2 % (42.2-75.2); HEMATOCRIT 27.8 % (37-47); MEAN CORPUSCULAR HGB 29.6 PG (27.0-31.0); MEAN CORPUSCULAR HGB CONC 33.4 G/DL (33.0-37.0); MEAN CORPUSCULAR VOLUME 88.6 FL (81.0-99.0); PLATELET COUNT 324 /CUMM (130-400); RBC DISTRIBUTION WIDTH 14.1 % (11.5-14.5); RED BLOOD CELL CT 3.14 /CUMM (4.20-5.40); WHITE BLOOD CELL COUNT 12.5 /CUMM (4.8-10.8)
[2017-12-18 08:31] VITALS: BP 122/72
--- NOTE | 2017-12-18 09:38 | PN- OBGYN ---
Surgical Brief Attending Note Brief Attending Note: Seen and evaluated She states that loose stools have decreased. States feels better than when was admitted Denies shortness of breathe and denies pain. Tmax 99.5 and afebrile at present BP 122/72 Pulse 68 Lungs clear Abdomen soft and fundus nontender Wound intact. Slight superficial opening and no drainage appreciated (however area is in a pannus so environment is moist). No erythema to wound Extremities. 1+ edema and full range of motion WBC 12.5 and Hct 27.8 and platelets 324. Meds. Vancomycin Day number 2 HD#4 and POD#10 s/p csection for arrest of labor and course complicated by endometritis and fluid overload and now with Cdiff. Clinical improvement noted in all areas. ID. WBC is falling and afebrile with clinical reduction in stool amount. On Vancomycin and to complete 10 day total course ([facility], 2018). Recommendation for probiotics as well. Heme. Recommend that she takes her and iron supplementation for nutritional support to correct anemia. Cardiac. On Labetalol with improvement in BP control. Maintain on 100 mg BID and I will reassess at follow up. Weight is stable at 229lbs. Denies dyspnea VTE prophylaxis. Ambulation while at home and avoidance of dehydration. DC home today in my opinion as clinical improvement and afebrile. I will see her on Thursday12/23/17 in my office for follow up. Patient shows understanding of treatment plan.
[2017-12-18] MEDS ORDERED: LABETALOL HCL100 M1 PO (10:28)
[2017-12-18] MEDS ORDERED: VANCOMYCIN HCL5 G1 PO ×3 (10:29→11:01)
[2017-12-18] MEDS ORDERED: PROBIOTIC & AC1 EACH PO ×2 (10:30→15:00)
--- NOTE | 2017-12-18 11:52 | PN- Infect Dx ---
Subjective Subjective: Afebrile. She feels well with no complaints. Her stools have become formed. Objective Last 24 Hrs of Vital Signs/I&O Vital Signs Date Time Temp Pulse Resp B/P B/P Pulse O2 O2 Flow FiO2 Mean Ox Delivery Rate 12/18 0831 68 122/72 12/18 0630 99.4 76 16 118/74 96 12/17 2200 99.5 95 16 96 12/174 130/80 12/17 1441 98.6 97 16 121/69 96 Room Air Intake & Output 12/18 1600 12/18 0800 12/18 0000 Intake Total 150 100 Output Total Balance 150 100 Intake, Oral 150 100 Number 1 Bowel Movements Physical Exam Other Physical Findings: She appears comfortable in no acute distress Abdomen is soft, nontender with positive bowel sounds; lower abdominal wound with no active drainage Extremities decreased edema both lower extremities Results Last 24 Hours of Lab Results: Laboratory Tests 12/18 637 Hematology CBC w Diff NO MAN DIFF REQ WBC (4.8 - 10.8 /CUMM) 12.5 H RBC (4.20 - 5.40 /CUMM) 3.14 L Hgb (12.0 - 16.0 G/DL) 9.3 L Hct (37 - 47 %) 27.8 L MCV (81.0 - 99.0 FL) 88.6 MCH (27.0 - 31.0 PG) 29.6 MCHC (33.0 - 37.0 G/DL) 33.4 RDW (11.5 - 14.5 %) 14.1 Plt Count (130 - 400 /CUMM) 324 MPV (7.4 - 10.4 FL) 8.0 Gran % (42.2 - 75.2 %) 76.2 H Lymphocytes % (20.5 - 51.1 %) 13.3 L Monocytes % (1.7 - 9.3 %) 8.0 Eosinophils % (0 - 5 %) 2.2 Basophils % (0.0 - 2.0 %) 0.3 Absolute Granulocytes (1.4 - 6.5 /CUMM) 9.6 H Absolute Lymphocytes (1.2 - 3.4 /CUMM) 1.7 Absolute Monocytes (0.10 - 0.60 /CUMM) 1.0 H Absolute Eosinophils (0.0 - 0.7 /CUMM) 0.3 Absolute Basophils (0.0 - 0.2 /CUMM) 0 Last 24 Hours of [place] Results: Blood cultures December 14 negative Assessment/Plan ID Impression: Improving, with no further fevers and with her white blood cell count decreasing , on p.o. Vancomycin, Day 2 of treatment for C. difficile. Suggestion: 1. Continue p.o. Vancomycin for 8 more days to complete a 10 day course of treatment
== END 2017-12-18 12:40 | DRG 776 ==
LOC: ERH 07:52 → 1NO 12:10 → ERHI 12:10 → ENRESERV 13:11 → ENTRNSPT 14:26 → EDTRNSPT 14:39 → EDTRNSPTSTS 14:39 → 1NO 14:40 → CMPTRNSPT 14:43 → ENPENDDIS 12-18 11:03 → ENTRNSPT 12-18 12:18 → EDTRNSPT 12-18 12:39 → EDTRNSPTSTS 12-18 12:39 → 1NO 12-18 12:40 → CMPTRNSPT 12-18 13:09
PROVIDERS: Physician Assistant Medical; Preventive Medicine Public Health & General Preventive Medicine; Student in an Organized Health Care Education/Training Program
DX: O86.12 Endometritis following delivery (principal); J81.0 Acute pulmonary edema; O86.4 Pyrexia of unknown origin following delivery; A04.72 Enterocolitis due to Clostridium difficile, not specified as recurrent; E66.9 Obesity, unspecified; Z68.38 Body mass index [BMI] 38.0-38.9, adult; R60.1 Generalized edema; E87.6 Hypokalemia; D64.9 Anemia, unspecified; E88.09 Other disorders of plasma-protein metabolism, not elsewhere classified; R16.2 Hepatomegaly with splenomegaly, not elsewhere classified; I10 Essential (primary) hypertension; O90.81 Anemia of the puerperium; O99.89 Other specified diseases and conditions complicating pregnancy, childbirth and the puerperium; O16.5 Unspecified maternal hypertension, complicating the puerperium; O86.89 Other specified puerperal infections
CPT/HCPCS: 1NP; 36415; 36592; 74177; 81001; 82436; 82570; 87015; 87040; 87045; 87070; 87086; 87899; 87899-59; 93005; 93010; 93306; J0131; J0713; J1650; J1940; J2405; J3370